=== PATIENT | female | born 1955 | race Caucasian/White ===

== ENCOUNTER 2022-07-03 15:13 | Inpatient (IN) | payer MEDICARE, OTHER ==
[~2022-07-03] VITALS: Ht 170.2 cm; Wt 93.0 kg
[2022-07-03] MEDS ORDERED: RISP0.2515 PO (15:41)
[2022-07-03] MEDS ORDERED: MELA3TAB41 PO (15:41)
[2022-07-03] MEDS ORDERED: MAG30ORA PO (15:41)
[2022-07-03] MEDS ORDERED: LEVO25TA7 PO (15:41)
[2022-07-03] MEDS ORDERED: MAGN400O6 PO (15:41)
[2022-07-03] MEDS ORDERED: PALI156D IM (15:41)
[2022-07-03] MEDS ORDERED: CLON0.1T PO (15:41)
[2022-07-03] MEDS ORDERED: PANT40TA2 PO (15:41)
[2022-07-03] MEDS ORDERED: LORA-259 PO (15:41)
[2022-07-03] MEDS ORDERED: DOCU-141 PO (15:41)
[2022-07-03] MEDS ORDERED: ACET-868 PO (15:41)
[2022-07-03] MEDS ORDERED: SIMV-46 PO (15:41)
--- NOTE | 2022-07-03 19:15 | NUR ---
darlyn MAYER [facility] for increase verbal agression since last night. sent by dr contreras for med/psych eval, geropsych admit. PLACED ON BED, TALKATIVE- IN AGRESSIVE MANNER, WILL CONTINUE TO MONITOR. BLOODS DRAWN EARLIER BY SUPERVISOR COLOR PASTE MIXING.
[2022-07-03 19:25] LABS: ACETAMINOPHEN 0 ug/ml (10-30); ALANINE AMINOTRANSFERASE 26 U/L (12-78); ALBUMIN 3.5 g/dL (3.4-5.0); ALCOHOL, BLOOD < 3 mg/dL (0-0); ALKALINE PHOSPHATASE 100 U/L (46-116); ASPARTATE AMINOTRANSFERASE 21 U/L (15-37); BILIRUBIN,DIRECT 0.1 mg/dL (0.0-0.2); BILIRUBIN,TOTAL 0.3 mg/dL (0.2-1.0); CALCIUM, SERUM 8.3 mg/dL (8.5-10.1); CARBON DIOXIDE 26 mmol/L (21-32); CHLORIDE 103 mmol/L (98-107); CREATININE 0.8 mg/dL (0.6-1.3); GLUCOSE 79 mg/dL (74-106); POTASSIUM 3.5 mmol/L (3.5-5.1); SODIUM SERUM 137 mmol/L (136-145); TOTAL PROTEIN, SERUM 7.3 g/dL (6.4-8.2); UREA NITROGEN, BLOOD 18 mg/dL (7-18)
[2022-07-03 20:18] LABS: BASOPHILS % (AUTO) 0.3 % (0.0-2.0); EOSINOPHILS % (AUTO) 0.9 % (0.0-6.0); HEMATOCRIT 42 % (33-45); HEMOGLOBIN 14.1 g/dL (11.5-14.8); LYMPHOCYTES # (AUTO) 1.5 K/uL (0.8-4.8); LYMPHOCYTES % (AUTO) 20.3 % (20.0-44.0); MEAN CORPUSCULAR HGB CONC 33 g/dl (31.0-36.0); MEAN CORPUSCULAR VOLUME 89 fL (82-100); MONOCYTES # (AUTO) 0.5 K/uL (0.1-1.30); MONOCYTES % (AUTO) 6.5 % (2.0-12.0); NEUTROPHILS # (AUTO) 5.5 K/uL (1.8-8.9); PLATELET COUNT (AUTO) 225 K/uL (150-450); RED BLOOD CELL COUNT(AUTO) 4.78 MIL/uL (4.0-5.2); WHITE BLOOD COUNT (AUTO) 7.6 K/uL (4.3-11.0)
[2022-07-03] MEDS ORDERED: LORAZEPAM 1 MG TABLET ONE (21:22)
[2022-07-03] MEDS ORDERED: LORAZEPAM 1 MG TABLET PO ONE (21:30)
[2022-07-03 21:31] LABS: BILIRUBIN,URINE NEGATIVE (NEGATIVE); COLOR,URINE YELLOW (YELLOW); LEUKOCYTE ESTERASE ,URINE NEGATIVE (NEGATIVE); NITRITE, URINE NEGATIVE (NEGATIVE); PROTEIN,URINE NEGATIVE (NEGATIVE); UGLUCOSE NEGATIVE (NEGATIVE); UROBILINOGEN,URINE 0.2 EU/dL (0.2)
[2022-07-03 21:45] LABS: BACTERIA,URINE 2+ /HPF (None Seen); RBC,URINE 0-2 /HPF (0-2); SQUAMOUS EPITHELIAL CELL,UR Moderate /HPF (None Seen); WBC,URINE 0-2 /HPF (0-3)
--- NOTE | 2022-07-03 22:23 | NUR ---
ROOM 218-1
--- NOTE | 2022-07-03 23:00 | NUR ---
REPORT GIVEN TO KELLEE RN ROOM 218-1 FOR RENATE.
--- NOTE | 2022-07-03 23:05 | NUR ---
Patient is admitted to room 218 bed A from ED she is alert and verbal appears very anxious and uncooperative. She was yelling and screaming refused body assessment, refused to get change to hospital gown. Patient was offered a sleeping pill to help her go to sleep she states that give me a gun I'll shoot myself and I mean it. Patient at some point calms down, staff assist with hospital gown and personal belongings, patient was assisted to bed safety maintained. Addendum: 07/04/22 at [address] [facility] INPATIENT RN3 RN Influenza and pneumonia vaccines offered to patient on admission but patient refused despite explanation of benefits and importance of vaccination.
--- NOTE | 2022-07-03 23:09 | NUR ---
PATIENT TRANSFERRED TO [facility]
--- NOTE | 2022-07-03 23:12 | NUR ---
Patient is admitted to room 218 bed A from ED she is alert and verbal appears very anxious and uncooperative. She was yelling and screaming refused body assessment, refused to get change to hospital gown. Patient was offered a sleeping pill to help her go to sleep she states that give me a gun I'll shoot myself and I mean it. Patient at some point calms down, staff assist with hospital gown and personal belongings, patient was assisted to bed safety maintained Influenza and pneumonia vaccines offered to patient on admission but patient refused despite explanation of benefits and importance of vaccination.
[2022-07-03] MEDS ORDERED: ACETAMINOPHEN 325 MG TABLET PO PRN (23:30)
[2022-07-03] MEDS ORDERED: MAGNESIUM HYDROXIDE 30 ML UDC PO PRN (23:30)
[2022-07-03] MEDS ORDERED: BLOOD SUGAR DIAGNOSTIC 1 EACH STRIP IN ONE (23:30)
[2022-07-03] MEDS ORDERED: MAG HYDROX/AL HYDROX/SIMETH 30 ML UDC PO PRN (23:30)
[2022-07-04] MEDS: CEPHALEXIN MONOHYDRATE 500 MG CAPSULE PO SCH ×3 (00:30→21:27)
[2022-07-04 01:58] VITALS: BP 158/97
[2022-07-04 02:01] VITALS: BP 158/97
--- NOTE | 2022-07-04 06:18 | NUR ---
Patient's sister Vidhi Denton was notified of patient's admission to [facility] unit.
[2022-07-04] MEDS: PANTOPRAZOLE 40 MG TABLET.DR PO SCH (07:32)
[2022-07-04] MEDS: LEVOTHYROXINE SODIUM 25 MCG TABLET PO SCH (07:32)
[2022-07-04 07:36] LABS: CHOLESTEROL 198 mg/dL (<200); HDL CHOLESTEROL 64 mg/dL (40-60); LDL 119 mg/dL (0-99); TRIGLYCERIDES 84 mg/dL (30-150)
[2022-07-04 07:42] LABS: ALBUMIN 3.4 g/dL (3.4-5.0); BILIRUBIN,TOTAL 0.6 mg/dL (0.2-1.0); CALCIUM, SERUM 8.4 mg/dL (8.5-10.1); CREATININE 0.8 mg/dL (0.6-1.3); POTASSIUM 3.8 mmol/L (3.5-5.1)
[2022-07-04 08:00] VITALS: BP 155/97
[2022-07-04] MEDS: DOCUSATE SODIUM 100 MG CAPSULE PO SCH (09:37)
--- NOTE | 2022-07-04 10:18 | NUR ---
ROME Clinical Note: Pt placed on a 5150 hold for danger to others and GD. Per hold, pt was brought to the hospital because she was aggressive at her facility. [place] [address]; ([phone]). ROME spoke with Parul soto ([phone]) who stated pt is welcomed back. ROME will contact pt's sister Vidhi ([phone]) to discuss treatment/discharge plan.
--- NOTE | 2022-07-04 10:18 | NUR ---
ROME Initial Discharge Plan: Patient currently resides at [facility] [address] [place] [address]; ([phone]). ROME spoke with Parul soto ([phone]) who stated pt is welcomed back. ROME will contact pt's sister Vidhi ([phone]) to discuss treatment/discharge plan. ROME will work with the MD, family, and pt to help coordinate appropriate discharge.
--- NOTE | 2022-07-04 10:19 | NUR ---
Treatment Plan: Pt refused to sign treatment plan and was labile. Pt laughing inappropriately.
--- NOTE | 2022-07-04 12:34 | NUR ---
Dr. Mitchell gave an order of Ativan 1 mg po q6hr prn for anxiety/agitation and to over ride the order.
[2022-07-04] MEDS: DIVALPROEX SODIUM 250 MG TABLET.DR PO SCH ×2 (12:53→17:43)
[2022-07-04] MEDS ORDERED: LORAZEPAM 1 MG TABLET PO PRN (13:00)
--- NOTE | 2022-07-04 13:11 | NUR ---
ROME Family: SW contacted pt's sister Vidhi ([phone]) and discussed treatment and discharge plan. Sister stated she would want pt to go back to [facility] when stable.
[2022-07-04 16:00] VITALS: BP 135/76
[2022-07-04] MEDS: risperiDONE 1 MG TABLET PO SCH (17:43)
--- NOTE | 2022-07-04 18:00 | NUR ---
RN NOTES PATIENT DELUSION TAKING SELF, ISOLATIVE, AGGRESSIVE, GUARDED. PATIENT AMBULATORY SELF CARE. DUE MEDICATION ADMINISTERED. REFUSED SI THOUGHTS.
[2022-07-04 20:00] VITALS: BP 157/82
--- NOTE | 2022-07-04 20:48 | NUR ---
SUPPORT CLERK. Received patient inside her room lying on her bed. Patient is confused, disorganized and talking to herself alone. Pateint denies Si/Hi. Encouraged patient to verbalized feelings and thoughts. Will Continue monitor for safety and behavior.
[2022-07-04] MEDS: SIMVASTATIN 20 MG TABLET PO SCH (21:27)
[2022-07-05] MEDS: PANTOPRAZOLE 40 MG TABLET.DR PO SCH ×2 (07:30→07:54)
[2022-07-05] MEDS: DOCUSATE SODIUM 100 MG CAPSULE PO SCH ×2 (07:54→09:00)
[2022-07-05] MEDS: LEVOTHYROXINE SODIUM 25 MCG TABLET PO SCH (07:54)
[2022-07-05] MEDS: risperiDONE 1 MG TABLET PO SCH ×3 (07:54→16:51)
[2022-07-05] MEDS: DIVALPROEX SODIUM 250 MG TABLET.DR PO SCH ×4 (07:54→16:51)
[2022-07-05] MEDS: CEPHALEXIN MONOHYDRATE 500 MG CAPSULE PO SCH ×2 (07:57→21:50)
[2022-07-05 08:00] VITALS: BP 145/88
[2022-07-05] MEDS ORDERED: OLANZAPINE 10 MG VIAL IM ONE (10:30)
--- NOTE | 2022-07-05 10:50 | NUR ---
GPS/RN PT WAS SELECTIVE WITH MEDS IN AM. DEFUSED DEPAKOTE AND RISPERDAL PO. DUE TO AGITATION AND BEING DISRUPTIVE IN THE UNIT DR MACKENZIE ORDERED ZYPREXA 10MG IM ONCE
--- NOTE | 2022-07-05 16:52 | NUR ---
GPS/RN PT REFUSED 1700 MEDS OFFERED X3
[2022-07-05 20:00] VITALS: BP 138/77
--- NOTE | 2022-07-05 20:20 | NUR ---
records management director notes: Received pt in her room, sleeping in bed. calm. on room air. breathing even and unlabored. no acute distress noted. will continue to monitor for safety and behavior.
[2022-07-05] MEDS: SIMVASTATIN 20 MG TABLET PO SCH (21:49)
[2022-07-06] MEDS: LEVOTHYROXINE SODIUM 25 MCG TABLET PO SCH (06:50)
[2022-07-06] MEDS: PANTOPRAZOLE 40 MG TABLET.DR PO SCH (06:50)
--- NOTE | 2022-07-06 06:54 | NUR ---
health sciences manager notes: Pt awake sitting in bed talking to herself. a/o X2. suspicious. guarded. angry. no acute distress noted. med compliant. verbalizes needs. ambulatory with a steady gait. needs anticipated and rendered. safety measures observed.
[2022-07-06 08:00] VITALS: BP 121/75
[2022-07-06] MEDS: CEPHALEXIN MONOHYDRATE 500 MG CAPSULE PO SCH ×2 (09:00→20:47)
[2022-07-06] MEDS: DOCUSATE SODIUM 100 MG CAPSULE PO SCH (09:00)
[2022-07-06] MEDS: DIVALPROEX SODIUM 250 MG TABLET.DR PO SCH ×3 (09:00→17:00)
[2022-07-06] MEDS: risperiDONE 1 MG TABLET PO SCH ×2 (09:00→17:00)
--- NOTE | 2022-07-06 10:56 | NUR ---
GPS/RN DR MACKENZIE ORDERED HALDOL 5MG IN AND BENADRYL 25MG IM ONCE FOR DISRUPTIVE BEHAVIOR IN THE UNIT, WHEN NURSES COME TO ADMINISTER THE SHOTS PT AGREED TO TAKE THEM.
[2022-07-06] MEDS ORDERED: diphenhydrAMINE HCL 50 MG/ML VIAL IM ONE (11:00)
[2022-07-06] MEDS ORDERED: HALOPERIDOL LACTATE INJ 5 MG/ML VIAL IM ONE (11:00)
[2022-07-06 16:00] VITALS: BP 137/76
--- NOTE | 2022-07-06 17:44 | NUR ---
GPS/RN PT REFUSED 1700 MEDS OFFERED X3. REMAINS ARGUMENTATIVE. STATES: " i DO NOT NEED THEM..."
[2022-07-06] MEDS: SIMVASTATIN 20 MG TABLET PO SCH (20:42)
[2022-07-06] MEDS: ZOLPIDEM TARTRATE 5 MG TABLET PO PRN (20:43)
[2022-07-06 20:44] VITALS: BP 148/93
--- NOTE | 2022-07-06 20:47 | NUR ---
RN notes Pt refuses keflex. explained risks and benefits. Pt stated " I don't take that meds!! Pt agitated easily.
--- NOTE | 2022-07-06 21:46 | NUR ---
RN notes Pt is requesting a sleeping pill ambien. Primary nurse open ambien in front of Pt and suddenly Pt refuses medication and screaming loudly. Medication was open [facility] and cosigned with QUINTON Euceda. Charge nurse is aware and informed. Returned medication with Pt's labeled inside a plastic bag.
[2022-07-07] MEDS: PANTOPRAZOLE 40 MG TABLET.DR PO SCH (07:30)
[2022-07-07] MEDS: LEVOTHYROXINE SODIUM 25 MCG TABLET PO SCH (07:30)
[2022-07-07 08:00] VITALS: BP 120/94
[2022-07-07] MEDS: risperiDONE 1 MG TABLET PO SCH ×2 (09:00→17:00)
[2022-07-07] MEDS: DIVALPROEX SODIUM 250 MG TABLET.DR PO SCH ×3 (09:00→17:00)
[2022-07-07] MEDS: CEPHALEXIN MONOHYDRATE 500 MG CAPSULE PO SCH ×2 (09:00→21:22)
[2022-07-07] MEDS: DOCUSATE SODIUM 100 MG CAPSULE PO SCH (09:00)
[2022-07-07 16:00] VITALS: BP 147/76
--- NOTE | 2022-07-07 18:29 | NUR ---
NURSE NOTE: PT REFUSED ALL PO MEDS DURING SHIFT. ENCOURAGED TO TAKE MULTIPLE TIMES, BUT PT STATED THAT THEY WERE BAD FOR HER, SHE DIDN'T NEED THEM, OR WOULD TELL YOU TO LEAVE THE ROOM.
--- NOTE | 2022-07-07 19:25 | NUR ---
GPS RN NOTE RECEIVED PT SLEEPING IN BED. PT A/O X2, ABLE TO MAKE NEEDS KNOWN. PT IS GUARDED, AND SUSPICIOUS. NO S/S OF RESPIRATORY DISTRESS NOTED. NO C/O PAIN OR DISCOMFORT AT THIS TIME. PT ABLE TO AMBULATE WITH STEADY GAIT. SAFETY MEASURES IMPLEMENTED. WILL CONTINUE TO MONITOR PT FOR SAFETY.
[2022-07-07 20:59] VITALS: BP 140/86
--- NOTE | 2022-07-07 21:00 | NUR ---
GPS RN NOTE PT HAS SCHEDULED MEDS FOR TONIGHT, KEFLEX 500 MG, AND ZOCOR 20 MG. PT REFUSES TO TAKE BOTH MEDS. SHE IS CLAIMING THAT WE ARE TRYING TO POISON HER THROUGH MEDS.
[2022-07-07] MEDS: SIMVASTATIN 20 MG TABLET PO SCH (21:21)
--- NOTE | 2022-07-08 06:44 | NUR ---
GPS RN NOTE PT LEFT IN STABLE CONDITION. ALL NEEDS ATTENDED. NO ACUTE DISTRESS, OR PAIN NOTED. PT REFUSES SKIN ASSESSMENT, AND PICTURES TO BE TAKEN. WILL ENDORSE PT TO AM SHIFT NURSE FOR CONTINUITY OF CARE.
[2022-07-08] MEDS: LEVOTHYROXINE SODIUM 25 MCG TABLET PO SCH (07:53)
[2022-07-08] MEDS: PANTOPRAZOLE 40 MG TABLET.DR PO SCH (07:53)
[2022-07-08 08:00] VITALS: BP 158/88
[2022-07-08] MEDS: DOCUSATE SODIUM 100 MG CAPSULE PO SCH (09:00)
[2022-07-08] MEDS: CEPHALEXIN MONOHYDRATE 500 MG CAPSULE PO SCH ×2 (09:00→21:00)
[2022-07-08] MEDS: DIVALPROEX SODIUM 250 MG TABLET.DR PO SCH ×3 (09:00→17:00)
[2022-07-08] MEDS: risperiDONE 1 MG TABLET PO SCH ×2 (09:00→17:00)
[2022-07-08 16:00] VITALS: BP 163/95
--- NOTE | 2022-07-08 18:07 | NUR ---
NURSE NOTE: PT REFUSED ALL PO MEDICATIONS EXCEPT FOR SYNTHROID AND PROTONIX DURING SHIFT. ATTEMPTED TO ENCOURAGE TO TAKE, BUT PT STATED THAT THE ALIENS FROM HER PLANET TELL HER SHE DOESN'T NEED IT.
[2022-07-08] MEDS: SIMVASTATIN 20 MG TABLET PO SCH (21:32)
[2022-07-08 21:58] VITALS: BP 148/78
[2022-07-09] MEDS: LEVOTHYROXINE SODIUM 25 MCG TABLET PO SCH (07:30)
[2022-07-09] MEDS: PANTOPRAZOLE 40 MG TABLET.DR PO SCH (07:30)
[2022-07-09 08:00] VITALS: BP 154/90
[2022-07-09] MEDS: risperiDONE 1 MG TABLET PO SCH ×2 (09:00→17:00)
[2022-07-09] MEDS: DOCUSATE SODIUM 100 MG CAPSULE PO SCH (09:00)
[2022-07-09] MEDS: CEPHALEXIN MONOHYDRATE 500 MG CAPSULE PO SCH ×2 (09:00→20:37)
[2022-07-09] MEDS: DIVALPROEX SODIUM 250 MG TABLET.DR PO SCH ×3 (09:00→17:00)
[2022-07-09 16:10] VITALS: BP_SYST 114; BP_SYST 116; BP_DIAS 56; BP_DIAS 80
[2022-07-09 19:32] VITALS: BP 143/81
[2022-07-09] MEDS: SIMVASTATIN 20 MG TABLET PO SCH (21:17)
[2022-07-10] MEDS: PANTOPRAZOLE 40 MG TABLET.DR PO SCH (07:06)
[2022-07-10] MEDS: LEVOTHYROXINE SODIUM 25 MCG TABLET PO SCH (07:06)
[2022-07-10 08:00] VITALS: BP 160/116
[2022-07-10] MEDS: CLONIDINE HCL 0.1 MG TABLET PO PRN ×2 (08:21→08:23)
--- NOTE | 2022-07-10 08:21 | NUR ---
RN-CO: PT REFUSED CLONIDINE, SHE THINKS THAT RN WANTS TO KILL HER.
[2022-07-10] MEDS: CEPHALEXIN MONOHYDRATE 500 MG CAPSULE PO SCH ×2 (08:23→21:00)
[2022-07-10] MEDS: DIVALPROEX SODIUM 250 MG TABLET.DR PO SCH ×3 (08:23→16:18)
[2022-07-10] MEDS: DOCUSATE SODIUM 100 MG CAPSULE PO SCH (08:23)
[2022-07-10] MEDS: risperiDONE 1 MG TABLET PO SCH ×2 (08:23→16:18)
--- NOTE | 2022-07-10 08:24 | NUR ---
RN-CO: PT REFUSED ALL HER AM MEDS INSPITE OF MY ENCOURAGEMENT, SHE BELIEVES THAT I WANT TO POISON HER.
--- NOTE | 2022-07-10 10:46 | NUR ---
RN-CO: PATIENT REFUSED ALL HER MEDICAITONS, SHE BELIEVES THAT STAFF IS POISONING HER. SHE IS RESTLESS AND PACING IN THE HALLWAY. SHE IS FOCUS ON DISCHARGE BEC. SHE DOES NOT BELIEVE THAT SHE BELONGS IN THE UNIT. SHE GOES TO NURSING STATION AND TALKS TO DR MACKENZIE AND TELLING HIM THAT MD TOOK HER IN GPS AGAINTS HER WILL AND THAT IS AGAINST GNOSTICIST.
--- NOTE | 2022-07-10 12:21 | NUR ---
RN-CO: PT REFUSED DEPAKOTE AT THIS TIME AND SHE STATED " NEVER GIVE ME ANY MEDICATIONS ! I AM NOT SICK!"
--- NOTE | 2022-07-10 16:01 | NUR ---
RN-CO: PATIENT WENT TO NURSING STATION AND WANTED TO BE DISCHARGE. SHE STATED " I NEED TO BE DISCHARGE NOW I DO NOT BELONG HERE AND I WON'T TAKE ANY MEDICATIONS!" PATIENT IS BELLIGERENT.
--- NOTE | 2022-07-10 19:30 | NUR ---
GPS RN NOTE, RECEIVED PATIENT AWAKE AND IN BED, NO S/S OR COMPLAINTS OF PAIN AT THIS TIME. PATIENT IS DISPLAYING NO S/S OF APPARENT DISTRESS AT THIS TIME. PATIENT BREATHING IS UNLABORED WITH EQUAL RISE AND FALL OF THE CHEST. PATIENT IS ALERT AND ORIENTED X 3 ON ROOM AIR WITH A SPO2 96%. PATIENT IS REFUSING MEDICATIONS, ANXIOUS, PARANOID, ARGUMENTATIVE, MAKES NEEDS KNOWN, AND COOPERATIVE. PATIENT IS A AWOL RISK. PATIENT DENIES SUICIDAL AND HOMICIDAL IDEATIONS AT THIS TIME. PATIENT ASSISTED WITH TURNING AND REPOSITIONING Q2HR AND PRN FOR COMFORT AND CIRCULATION. PATIENT HAS NO NEEDS AT THIS TIME. PATIENT EDUCATED ON THE USE OF THE CALL SELBY. PATIENT BED SIDE RAILS UP X 2 FOR SAFETY. PATIENT BED IS LOCKED AND LOW. WILL CONTINUE TO MONITOR THIS PATIENT Q15 MINUTES WITH THE HELP OF STAFF TO MAINTAIN SAFETY.
[2022-07-10 20:03] VITALS: BP 160/90
[2022-07-10] MEDS: SIMVASTATIN 20 MG TABLET PO SCH (21:45)
--- NOTE | 2022-07-10 21:45 | NUR ---
GPS RN NOTE, PATIENT REFUSED KEFLEX 500MG PO Q12HR AND ZOCOR 20MG PO HS. OFFERED THREE TIMES AND STILL PATIENT REFUSED STATING," NO MEDICATIONS JABARI WON'T ALLOW IT ". EDUCATED PATIENT ON THE RISKS AND BENEFITS OF TAKING AND REFUSING AFOREMENTIONED MEDICATION. WILL CONTINUE TO MONITOR THIS PATIENT WITH THE HELP OF STAFF.
[2022-07-11] MEDS: LEVOTHYROXINE SODIUM 25 MCG TABLET PO SCH (07:30)
[2022-07-11] MEDS: PANTOPRAZOLE 40 MG TABLET.DR PO SCH (07:30)
[2022-07-11 08:00] VITALS: BP 159/89
[2022-07-11] MEDS: DIVALPROEX SODIUM 250 MG TABLET.DR PO SCH ×3 (09:00→16:55)
[2022-07-11] MEDS: CEPHALEXIN MONOHYDRATE 500 MG CAPSULE PO SCH ×2 (09:00→21:00)
[2022-07-11] MEDS: risperiDONE 1 MG TABLET PO SCH ×3 (09:00→16:55)
[2022-07-11] MEDS: LISINOPRIL (5MG) 5 MG TABLET PO SCH (09:00)
[2022-07-11] MEDS: DOCUSATE SODIUM 100 MG CAPSULE PO SCH (09:00)
--- NOTE | 2022-07-11 09:13 | NUR ---
At first pt. agreed to take Protonix and Levothyroxine and once meds was offered she refused and said that is not Protonix and Levothyroxine. Pt. refused the rest of all the meds including psychotropic, was explained on the importance and offered 3x and still refusing and said I'm normal and not mentally ill.
--- NOTE | 2022-07-11 10:30 | NUR ---
RN Notes: Received awake in bed, guarded upon approached, suspicious and talking to self. Pt. ate 100% for breakfast and easily got irritated. At first pt. agreed to take Protonix and Levothyroxine and once meds was offered she refused and said that is not Protonix and Levothyroxine. Pt. refused the rest of all the meds including psychotropic, was explained on the importance and offered 3x and still refusing and said I'm normal and not mentally ill. Encouraged to verbalize feelings and motivated to attend group activity. Needs attended and will continue to monitor for safety.
--- NOTE | 2022-07-11 13:27 | NUR ---
Cecily refused for Depakote at this time and said "I'm normal and I don't need it". Will continue to monitorr.
[2022-07-11] MEDS ORDERED: OLANZAPINE 10 MG VIAL IM PRN (13:30)
[2022-07-11] MEDS: OLANZAPINE 10 MG VIAL IM PRN ×2 (13:44→16:56)
--- NOTE | 2022-07-11 19:30 | NUR ---
GPS RN NOTE, RECEIVED PATIENT AWAKE AND IN BED, NO S/S OR COMPLAINTS OF PAIN AT THIS TIME. PATIENT IS DISPLAYING NO S/S OF APPARENT DISTRESS AT THIS TIME. PATIENT BREATHING IS UNLABORED WITH EQUAL RISE AND FALL OF THE CHEST. PATIENT IS ALERT AND ORIENTED X 3 ON ROOM AIR WITH A SPO2 98%. PATIENT IS REFUSING MEDICATIONS, ANXIOUS, PARANOID, ARGUMENTATIVE, MAKES NEEDS KNOWN, AND COOPERATIVE. PATIENT IS A AWOL RISK. PATIENT DENIES SUICIDAL AND HOMICIDAL IDEATIONS AT THIS TIME. PATIENT ASSISTED WITH TURNING AND REPOSITIONING Q2HR AND PRN FOR COMFORT AND CIRCULATION. PATIENT HAS NO NEEDS AT THIS TIME. PATIENT EDUCATED ON THE USE OF THE CALL SELBY. PATIENT BED SIDE RAILS UP X 2 FOR SAFETY. PATIENT BED IS LOCKED AND LOW. WILL CONTINUE TO MONITOR THIS PATIENT Q15 MINUTES WITH THE HELP OF STAFF TO MAINTAIN SAFETY.
[2022-07-11 20:00] VITALS: BP 151/81
[2022-07-11] MEDS: SIMVASTATIN 20 MG TABLET PO SCH (21:26)
--- NOTE | 2022-07-11 21:26 | NUR ---
GPS RN NOTE, PATIENT REFUSED KEFLEX 500MG PO Q12HR AND ZOCOR 20MG PO HS. OFFERED THREE TIMES AND STILL PATIENT REFUSED STATING," NO MEDICATIONS EVER ". EDUCATED PATIENT ON THE RISKS AND BENEFITS OF TAKING AND REFUSING AFOREMENTIONED MEDICATION. WILL CONTINUE TO MONITOR THIS PATIENT WITH THE HELP OF STAFF.
[2022-07-12] MEDS: LEVOTHYROXINE SODIUM 25 MCG TABLET PO SCH (07:30)
[2022-07-12] MEDS: PANTOPRAZOLE 40 MG TABLET.DR PO SCH (07:30)
[2022-07-12] MEDS: OLANZAPINE 10 MG VIAL IM PRN ×2 (07:58→13:20)
[2022-07-12] MEDS: DOCUSATE SODIUM 100 MG CAPSULE PO SCH (08:03)
[2022-07-12] MEDS: CEPHALEXIN MONOHYDRATE 500 MG CAPSULE PO SCH ×2 (08:03→21:37)
[2022-07-12] MEDS: DIVALPROEX SODIUM 250 MG TABLET.DR PO SCH ×3 (08:03→16:57)
[2022-07-12] MEDS: LISINOPRIL (5MG) 5 MG TABLET PO SCH (08:03)
[2022-07-12] MEDS: risperiDONE 1 MG TABLET PO SCH ×3 (08:04→16:57)
--- NOTE | 2022-07-12 09:00 | NUR ---
GPS/RN PT REFUSED PO MEDS OFFERED X3. LOUD AND PROFANE. MEDICATED ORDERED WITH ZYPREXA 5MG IM
[2022-07-12 16:00] VITALS: BP 164/70
--- NOTE | 2022-07-12 19:30 | NUR ---
GPS RN NOTE, RECEIVED PATIENT AWAKE AND IN BED, NO S/S OR COMPLAINTS OF PAIN AT THIS TIME. PATIENT IS DISPLAYING NO S/S OF APPARENT DISTRESS AT THIS TIME. PATIENT BREATHING IS UNLABORED WITH EQUAL RISE AND FALL OF THE CHEST. PATIENT IS ALERT AND ORIENTED X 3 ON ROOM AIR WITH A SPO2 97%. PATIENT IS SELECTIVE WITH MEDICATIONS, ANXIOUS, PARANOID, ARGUMENTATIVE, MAKES NEEDS KNOWN, AND COOPERATIVE. PATIENT IS A AWOL RISK. PATIENT DENIES SUICIDAL AND HOMICIDAL IDEATIONS AT THIS TIME. PATIENT ASSISTED WITH TURNING AND REPOSITIONING Q2HR AND PRN FOR COMFORT AND CIRCULATION. PATIENT HAS NO NEEDS AT THIS TIME. PATIENT EDUCATED ON THE USE OF THE CALL SELBY. PATIENT BED SIDE RAILS UP X 2 FOR SAFETY. PATIENT BED IS LOCKED AND LOW. WILL CONTINUE TO MONITOR THIS PATIENT Q15 MINUTES WITH THE HELP OF STAFF TO MAINTAIN SAFETY.
[2022-07-12 20:00] VITALS: BP 150/110
[2022-07-12] MEDS: SIMVASTATIN 20 MG TABLET PO SCH (21:37)
[2022-07-12] MEDS: ZOLPIDEM TARTRATE 5 MG TABLET PO PRN (22:17)
--- NOTE | 2022-07-12 22:17 | NUR ---
GPS RN NOTE, PATIENT REFUSED AMBIEN 5MG PO HS. OFFERED THREE TIMES AND STILL PATIENT REFUSED STATING," NO THAT MEDICATION MAKES ME VERY CONFUSED AND NUTS ". EDUCATED PATIENT ON THE RISKS AND BENEFITS OF TAKING AND REFUSING AFOREMENTIONED MEDICATION. WILL CONTINUE TO MONITOR THIS PATIENT WITH THE HELP OF STAFF.
[2022-07-13] MEDS: LEVOTHYROXINE SODIUM 25 MCG TABLET PO SCH (07:30)
[2022-07-13] MEDS: PANTOPRAZOLE 40 MG TABLET.DR PO SCH (07:30)
[2022-07-13] MEDS: LISINOPRIL (5MG) 5 MG TABLET PO SCH (08:25)
[2022-07-13] MEDS: DOCUSATE SODIUM 100 MG CAPSULE PO SCH (08:33)
[2022-07-13] MEDS: CEPHALEXIN MONOHYDRATE 500 MG CAPSULE PO SCH ×2 (08:33→20:50)
[2022-07-13] MEDS: risperiDONE 1 MG TABLET PO SCH ×3 (08:33→17:00)
[2022-07-13] MEDS: DIVALPROEX SODIUM 250 MG TABLET.DR PO SCH ×3 (08:33→17:00)
[2022-07-13] MEDS: OLANZAPINE 10 MG VIAL IM PRN ×3 (08:35→17:34)
--- NOTE | 2022-07-13 08:37 | NUR ---
GPS/RN PT REFUSED VS CHECK IN AM REFUSED ALL AM MEDS OFFERED X3. BELLIGERENT AND USING FOUL LANGUAGE. ZYPREXA 5MG IM GIVEN ORDERED.
[2022-07-13] MEDS: SIMVASTATIN 20 MG TABLET PO SCH (21:07)
--- NOTE | 2022-07-13 21:08 | NUR ---
RN note:patient refused V/S to be taken,and also her scheduled medications Kelfex 500mg PO and Simvastatin 20 mg PO.Patient remains to be delusional that she is the tail edger of the hospital,mumbling,talking to self,non sensible.No s/s of acute distress noted.Will continue to monitor q15 min rounds for safety.
[2022-07-14] MEDS: PANTOPRAZOLE 40 MG TABLET.DR PO SCH (07:30)
[2022-07-14] MEDS: LEVOTHYROXINE SODIUM 25 MCG TABLET PO SCH (07:30)
[2022-07-14] MEDS: DOCUSATE SODIUM 100 MG CAPSULE PO SCH (08:52)
[2022-07-14] MEDS: CEPHALEXIN MONOHYDRATE 500 MG CAPSULE PO SCH ×2 (08:53→21:00)
[2022-07-14] MEDS: LISINOPRIL (5MG) 5 MG TABLET PO SCH (08:53)
[2022-07-14] MEDS: risperiDONE 1 MG TABLET PO SCH ×3 (08:53→16:40)
[2022-07-14] MEDS: OLANZAPINE 10 MG VIAL IM PRN ×2 (08:53→13:39)
[2022-07-14] MEDS: DIVALPROEX SODIUM 250 MG TABLET.DR PO SCH ×3 (08:53→16:39)
--- NOTE | 2022-07-14 08:53 | NUR ---
RN NOTE PATIENT REFUSED VITAL SIGN CHECK, REFUSED ALL MORNING MEDICATIONS. OFFERED X3, STRONGLY REFUSED, PATIENT STATED "I'M NOT PSYCHOTIC". ZYPREXA 5 MG IM GIVEN ORDERED.
--- NOTE | 2022-07-14 11:15 | NUR ---
GPS/RN ASSUMED CARE OF PATIENT
--- NOTE | 2022-07-14 19:30 | NUR ---
GPS RN OPENING NOTE RECEIVED PATIENT AWAKE IN BED. A/OX2. PT STABLE ON ROOM AIR.NO SOB OR S/S OF RESPIRATORY DISTRESS. BREATHING EVEN AND UNLABORED. PT IS PARANOID, EASILY IRRITATED, AND DISORGANIZED. SAFETY PRECAUTIONS IN PLACE. WILL CONTINUE TO MONITOR Q15MIN ROUNDS FOR SAFETY AND BEHAVIOR.
[2022-07-14] MEDS: SIMVASTATIN 20 MG TABLET PO SCH (21:31)
--- NOTE | 2022-07-14 21:54 | NUR ---
RN NOTE PT REFUSING TO TAKE KEFLEX AND SIMVASTATIN. OFFERED X3 BUT PT STRONGLY REFUSING. ATTEMPTED TO EDUCATE PT ON MEDICATION COMPLIANCE AND BUT STARTED YELLING "GET OUT OF MY ROOM. I WILL NOT TAKE ANYTHING". CHARGE NURSE EDUARD MAGUIRE.
[2022-07-15] MEDS: LEVOTHYROXINE SODIUM 25 MCG TABLET PO SCH (07:59)
[2022-07-15] MEDS: PANTOPRAZOLE 40 MG TABLET.DR PO SCH (07:59)
[2022-07-15] MEDS: DIVALPROEX SODIUM 250 MG TABLET.DR PO SCH ×3 (08:56→16:18)
[2022-07-15] MEDS: DOCUSATE SODIUM 100 MG CAPSULE PO SCH (08:56)
[2022-07-15] MEDS: OLANZAPINE 10 MG VIAL IM PRN (08:56)
[2022-07-15] MEDS: LISINOPRIL (5MG) 5 MG TABLET PO SCH (08:57)
[2022-07-15] MEDS: risperiDONE 1 MG TABLET PO SCH ×3 (08:57→16:18)
[2022-07-15] MEDS: CEPHALEXIN MONOHYDRATE 500 MG CAPSULE PO SCH ×2 (08:57→20:56)
[2022-07-15] MEDS: HALOPERIDOL LACTATE INJ 5 MG/ML VIAL IM PRN ×2 (12:37→16:18)
[2022-07-15 20:41] VITALS: BP 138/76
[2022-07-15] MEDS: ZOLPIDEM TARTRATE 5 MG TABLET PO PRN (21:02)
[2022-07-15] MEDS: SIMVASTATIN 20 MG TABLET PO SCH (21:07)
[2022-07-16] MEDS: LEVOTHYROXINE SODIUM 25 MCG TABLET PO SCH ×2 (06:54→09:12)
[2022-07-16] MEDS: PANTOPRAZOLE 40 MG TABLET.DR PO SCH (06:54)
--- NOTE | 2022-07-16 06:55 | NUR ---
RN Note: 2100: Patient c/o difficulty falling asleep,requested and given Ambien 5 mg PO as ordered.With good effect." I slept good".
[2022-07-16 08:00] VITALS: BP 160/92
[2022-07-16] MEDS: DOCUSATE SODIUM 100 MG CAPSULE PO SCH (09:00)
[2022-07-16] MEDS: LISINOPRIL (5MG) 5 MG TABLET PO SCH (09:00)
[2022-07-16] MEDS: CEPHALEXIN MONOHYDRATE 500 MG CAPSULE PO SCH ×2 (09:00→21:00)
[2022-07-16] MEDS: DIVALPROEX SODIUM 250 MG TABLET.DR PO SCH ×3 (09:00→16:59)
[2022-07-16] MEDS: risperiDONE 1 MG TABLET PO SCH ×3 (09:00→17:03)
[2022-07-16] MEDS: diphenhydrAMINE HCL 50 MG/ML VIAL IM PRN ×2 (09:17→13:01)
[2022-07-16] MEDS: HALOPERIDOL LACTATE INJ 5 MG/ML VIAL IM PRN ×2 (09:17→13:01)
--- NOTE | 2022-07-16 09:35 | NUR ---
RN-CO: PATIENT WAS SEEN AND EXAMINED BY DR MACKENZIE. SHE REMAINS DELUSIONAL AND UNCOOPERATIVE. REFUSED ALL HER MEDICATIONS AND THREW WATER TO STAFF. SHE WAS GIVEN IM HALDOL AND BENADRYL BACK UP FOR REFUSAL OF PO MEDICATIONS. SHE DOES NOT BELIEVE THAT SHE IS PSYCHOTIC.
--- NOTE | 2022-07-16 13:09 | NUR ---
RN-CO: PATIENT REMAINS DELUSIONAL, SHE BELIEVES THAT SHE IS THE "ORIGINAL CINDERELLA." SHE REFUSED HER 1PM MEDICATIONS AGAIN. SHE IS TALKING TO HERSELF AND SHE ALSO STATED THAT HER BOYFRIEND IS A PSYCHIATRIST. WHILE IN AM SHE TOLD DR MACKENZIE THAT SHE NEEDS A BOYFRIEND.
[2022-07-16 16:00] VITALS: BP 142/68
[2022-07-16 20:32] VITALS: BP 132/92
[2022-07-16] MEDS: SIMVASTATIN 20 MG TABLET PO SCH (21:02)
[2022-07-17] MEDS: LEVOTHYROXINE SODIUM 25 MCG TABLET PO SCH (06:49)
[2022-07-17] MEDS: PANTOPRAZOLE 40 MG TABLET.DR PO SCH (06:49)
[2022-07-17 08:00] VITALS: BP 159/86
[2022-07-17] MEDS: CEPHALEXIN MONOHYDRATE 500 MG CAPSULE PO SCH ×3 (09:00→21:00)
[2022-07-17] MEDS: DOCUSATE SODIUM 100 MG CAPSULE PO SCH (09:06)
[2022-07-17] MEDS: risperiDONE 1 MG TABLET PO SCH ×3 (09:06→16:32)
[2022-07-17] MEDS: LISINOPRIL (5MG) 5 MG TABLET PO SCH (09:06)
[2022-07-17] MEDS: DIVALPROEX SODIUM 250 MG TABLET.DR PO SCH ×3 (09:06→16:33)
[2022-07-17] MEDS ORDERED: PALIPERIDONE PALMITATE 156 MG/ML SYRINGE IM SCH (11:00)
[2022-07-17] MEDS: diphenhydrAMINE HCL 50 MG/ML VIAL IM PRN (13:47)
[2022-07-17] MEDS: HALOPERIDOL LACTATE INJ 5 MG/ML VIAL IM PRN (13:47)
--- NOTE | 2022-07-17 13:50 | NUR ---
NURSE NOTE: PT REFUSE PO MEDS (DEPAKOTE AND RISPERDAL). ZYPREXA AND BENADRYL ADMIN IM ORDERED PER REISE. PT FERNANDO WELL. WILL CONT TO MONITOR.
--- NOTE | 2022-07-17 15:00 | NUR ---
NURSE NOTE: SELWYN FAUSTIN IM ADMINISTERED ORDERED. PT FERNANDO WELL. WILL CONT TO MONITOR.
[2022-07-17 16:00] VITALS: BP 147/78
--- NOTE | 2022-07-17 19:00 | NUR ---
NURSE NOTE: PT TOOK 0900 AND 1700 PO MEDS. REFUSED 1300 PO MEDS (ENCOURAGED TO TAKE MULT TIMES) SO GOT ZYPREXA AND BENADRYL IM PER REISE. PT IN STABLE COND AT THIS TIME. ALSO RECEIVED INVEGA SUSTENNA IM ORDERED AT 1500. WILL CONT TO MONITOR.
[2022-07-17] MEDS: ZOLPIDEM TARTRATE 5 MG TABLET PO PRN (21:02)
[2022-07-17] MEDS: SIMVASTATIN 20 MG TABLET PO SCH (21:02)
--- NOTE | 2022-07-17 21:03 | NUR ---
Pt c/o insomnia. Least restrictive measures ineffective. Ambien 5 mg 1 tab po prn given as ordered. Will continue to monitor.
--- NOTE | 2022-07-17 22:02 | NUR ---
Pt refused 2100 medication Keflex 500 mg. Explained risk and benefits. Offered x3 and still refused. Pt states, " I dont take keflex because i am allergic to it." Charge nurse aware. Will continue to monitor. Will endorse to next shift.
--- NOTE | 2022-07-17 22:07 | NUR ---
Post 1 hr Ambien effective. Pt asleep in bed easy to arouse. Frequent visual check done for safety. Will continue to monitor.
--- NOTE | 2022-07-18 03:10 | NUR ---
Pt awake and c/o anxiety. Least restrictive measures ineffective. Ativan 1 mg po prn given as ordered. Will continue to monitor.
[2022-07-18] MEDS: LEVOTHYROXINE SODIUM 25 MCG TABLET PO SCH (06:43)
[2022-07-18] MEDS: PANTOPRAZOLE 40 MG TABLET.DR PO SCH (06:43)
[2022-07-18 08:00] VITALS: BP 109/55
[2022-07-18] MEDS: risperiDONE 1 MG TABLET PO SCH ×3 (09:00→17:25)
[2022-07-18] MEDS: CEPHALEXIN MONOHYDRATE 500 MG CAPSULE PO SCH ×2 (09:00→21:00)
[2022-07-18] MEDS: LISINOPRIL (5MG) 5 MG TABLET PO SCH (09:00)
[2022-07-18] MEDS: DOCUSATE SODIUM 100 MG CAPSULE PO SCH (09:00)
[2022-07-18] MEDS: DIVALPROEX SODIUM 250 MG TABLET.DR PO SCH ×3 (09:00→17:25)
[2022-07-18] MEDS: HALOPERIDOL LACTATE INJ 5 MG/ML VIAL IM PRN ×2 (09:14→13:52)
[2022-07-18] MEDS: diphenhydrAMINE HCL 50 MG/ML VIAL IM PRN ×2 (09:14→13:52)
--- NOTE | 2022-07-18 09:23 | NUR ---
RN-NOTES PATIENT REFUSED ALL 0900AM MEDICATIONS INCLUDING DEPAKOTE 250MG P.O AND RISPERDAL 2MG P.O. OFFERED X3 BUT PATIENT GETS ANGRY AND IRRITABLE. STATED" I'M NOT TAKING THAT MEDICATIONS BECAUSE IT IS WRONG MEDICATIONS". HALDOL 5MG IM AND BENADRYL 25MG IM GIVEN ORDERED. PATIENT IS REISE.
--- NOTE | 2022-07-18 13:54 | NUR ---
RN-NOTES PATIENT REFUSED ALL 1300 P.O MEDICATIONS INCLUDING DEPAKOTE 250MG P.O AND RISPERDAL 2MG P.O. OFFERED X3. HALDOL 5MG IM AND BENADRYL 25MG IM GIVEN ORDERED. PATIENT IS REISE.
--- NOTE | 2022-07-18 17:58 | NUR ---
RN-NOTES PATIENT IS VISIBLE IN THE UNIT,A/OX 2,GUARDED,NOTED WITH ARGUMENTATIVE,ANGRY AND IRRITABLE WHEN APPROACH. IM MEDICATIONS GIVEN IN AM, AND AFTERNOON. STATED " SHE'S GOING TO [facility] ALL NURSES IN THIS HOSPITAL FOR GIVING HER THE INJECTIONS". PIT RECORDER EXPLAINED THAT SHE WAS REISED AND IN EVERY REFUSAL OF A SPECIFIC MEDICATIONS WILL GIVE INJECTIONS. PATIENT TOOK THE 1700 P.O MEDICATIONS THIS SHIFT. PATIENT IS AMBULATORY WITH STEADY GAIT. ALL NEEDS ATTENDED AND ANTICIPATED. WILL CONT. MONITORING FOR SAFETY AND BEHAVIOR. WILL ENDORSE TO INCOMING NURSE FOR CONTINUITY OF CARE.
[2022-07-18 20:15] VITALS: BP 137/69
--- NOTE | 2022-07-18 20:26 | NUR ---
RN NOTES: RECEIVED PATIENT RESTING IN HER ROOM EASILY AGITATED , PARANOID,HYPERVERBAL GUARDED,NO ACUTE DISTRESS NOTED.NEEDY DEMENDING ARGUMENTATIVE BEHAVIOR. ALL NEEDS ATTENDED AND ANTICIPATED. WILL CONTINUE TO MONITORING FOR SAFETY AND BEHAVIOR.
[2022-07-18] MEDS: SIMVASTATIN 20 MG TABLET PO SCH (21:13)
--- NOTE | 2022-07-18 21:14 | NUR ---
RN NOTES: Pt refused night schedule at 2100 medication Keflex 500 mg, Zocor 20 mg po Explained risk and benefits. Offered x3 and still refused. Pt states, " I dont take any medications i am allergic to it." Charge nurse aware. Will continue to monitor.
--- NOTE | 2022-07-19 08:10 | NUR ---
Discharge Note: Patient will be discharged to nursing home facility to [facility] [address] [place] [id number]; ([phone]) via Ambulance transportation at 2PM. Tube Balancer spoke with Parul admissions dean at [facility] ([phone]) who stated patient will be accepted at facility today. Patient is alert and oriented x2 and is not able to plan for self-care at this time but is willing to accept care provided by the facility. Patient denies any suicidal or homicidal ideations. Patient is aware and agreeable with discharge plans. Patients sister Vidhi ([phone]). Patient will continue to follow-up with (psychiatrist) Dr. Martinez at [address] [place] [address]; ([phone]) and (signals intelligence superintendent) Dr. Perez [address] [facility] [address], [place] [address]; ([phone]). Patient presents with euthymic mood and congruent affect.
[2022-07-19] MEDS: LISINOPRIL (5MG) 5 MG TABLET PO SCH (08:19)
[2022-07-19] MEDS: DIVALPROEX SODIUM 250 MG TABLET.DR PO SCH ×2 (08:26→12:54)
[2022-07-19] MEDS: LEVOTHYROXINE SODIUM 25 MCG TABLET PO SCH (08:26)
[2022-07-19] MEDS: PANTOPRAZOLE 40 MG TABLET.DR PO SCH (08:27)
[2022-07-19] MEDS: risperiDONE 1 MG TABLET PO SCH ×2 (08:27→12:54)
[2022-07-19] MEDS: DOCUSATE SODIUM 100 MG CAPSULE PO SCH (08:31)
[2022-07-19] MEDS: CEPHALEXIN MONOHYDRATE 500 MG CAPSULE PO SCH (08:34)
--- NOTE | 2022-07-19 09:31 | NUR ---
Dr. Mitchell gave an order to D/C hold and D/C to [facility] and to follow with the psych and medical doctors. Dr. Mitchell ordered on meds to continue in the facility.
--- NOTE | 2022-07-19 15:00 | NUR ---
GPS/RN PT DISCHARGED BACK TO [facility]. REPORT GIVEN TO THE [facility] NURSE NARCISO . PROPERTY RETURNED. EXIT CARE INSTRUCTIONS AND PRESCRIPTIONS PROVIDED. PT REFUSED TO SIGN THE D/C FORMS. NO SI OR HI AT THE TIME OF D/C REPORTED. AMBULATORY.VSS. PT LEFT UNIT AMBULANCE
== END 2022-07-19 15:10 | DRG 885 ==
LOC: ER 15:28 → GPS 22:36
PROVIDERS: ADMIT Psychiatry & Neurology Psychiatry
DX: F31.2 Bipolar disorder, current episode manic severe with psychotic features (principal); F29 Unspecified psychosis not due to a substance or known physiological condition; F41.9 Anxiety disorder, unspecified; I10 Essential (primary) hypertension; F03.90 Unspecified dementia, unspecified severity, without behavioral disturbance, psychotic disturbance, mood disturbance, and anxiety; M19.90 Unspecified osteoarthritis, unspecified site; E03.9 Hypothyroidism, unspecified; Z88.8 Allergy status to other drugs, medicaments and biological substances; Z88.1 Allergy status to other antibiotic agents; Z91.011 Allergy to milk products; Z79.899 Other long term (current) drug therapy; E66.9 Obesity, unspecified; Z68.32 Body mass index [BMI] 32.0-32.9, adult; Z91.14 Patient's other noncompliance with medication regimen
CPT/HCPCS: 36415; 80048-TC; 80053-TC; 80061-TC; 80076-TC; 81001; 82962-TC; 84443-TC; 85025-TC; 87081-TC; 87086-TC; C9803; G0480; J1200; J1630; J2426; J3490

== ENCOUNTER 2022-11-07 00:10 | Inpatient (IN) | payer MEDICARE, OTHER ==
[~2022-11-07] VITALS: Ht 165.1 cm; Wt 93.0 kg
[~2022-11-07 00:10] MED LIST: ACET-868 PO; CLON0.1T PO; DOCU-141 PO; LEVO25TA7 PO; LORA-259 PO; MAG30ORA PO; MAGN400O6 PO; MELA3TAB41 PO; PALI156D IM; PANT40TA2 PO; RISP0.2515 PO; SIMV-46 PO
--- NOTE | 2022-11-07 00:30 | NUR ---
COVID ANTIGEN SWAB COLLECTED AND SENT TO LAB
--- NOTE | 2022-11-07 00:35 | NUR ---
NONPROFIT FINANCIAL CONTROLLER AT PT'S BEDSIDE
[2022-11-07] MEDS ORDERED: LORAZEPAM INJ 2 MG/ML VIAL ONE (00:45)
[2022-11-07] MEDS ORDERED: DIVA-78 PO (00:47)
[2022-11-07] MEDS ORDERED: LISI-768 PO (00:47)
[2022-11-07 00:51] LABS: BASOPHILS # (AUTO) 0.1 K/uL (0.0-0.2); BASOPHILS % (AUTO) 0.8 % (0.0-2.0); EOSINOPHILS % (AUTO) 1.7 % (0.0-6.0); HEMATOCRIT 38 % (33-45); HEMOGLOBIN 12.6 g/dL (11.5-14.8); LYMPHOCYTES # (AUTO) 1.3 K/uL (0.8-4.8); LYMPHOCYTES % (AUTO) 21.7 % (20.0-44.0); MEAN CORPUSCULAR HGB CONC 33 g/dl (31.0-36.0); MEAN CORPUSCULAR VOLUME 88 fL (82-100); MONOCYTES # (AUTO) 0.4 K/uL (0.1-1.30); MONOCYTES % (AUTO) 6.6 % (2.0-12.0); NEUTROPHILS # (AUTO) 4.2 K/uL (1.8-8.9); NEUTROPHILS % (AUTO) 69.2 % (43.0-81.0); PLATELET COUNT (AUTO) 246 K/uL (150-450); RED BLOOD CELL COUNT(AUTO) 4.34 MIL/uL (4.0-5.2); WHITE BLOOD COUNT (AUTO) 6.1 K/uL (4.3-11.0)
[2022-11-07] MEDS ORDERED: LORAZEPAM INJ 2 MG/ML VIAL IM ONE (01:00)
[2022-11-07 01:01] LABS: CALCIUM, SERUM 8.7 mg/dL (8.5-10.1); CARBON DIOXIDE 28 mmol/L (21-32); CHLORIDE 106 mmol/L (98-107); CREATININE 0.8 mg/dL (0.6-1.3); GLUCOSE 100 mg/dL (74-106); POTASSIUM 3.5 mmol/L (3.5-5.1); SODIUM SERUM 141 mmol/L (136-145); UREA NITROGEN, BLOOD 10 mg/dL (7-18)
[2022-11-07 01:11] LABS: ALANINE AMINOTRANSFERASE 22 U/L (12-78); ALBUMIN 3.3 g/dL (3.4-5.0); ALCOHOL, BLOOD < 3 mg/dL (0-0); ALKALINE PHOSPHATASE 95 U/L (46-116); ASPARTATE AMINOTRANSFERASE 14 U/L (15-37); BILIRUBIN,DIRECT 0.1 mg/dL (0.0-0.2); BILIRUBIN,TOTAL 0.4 mg/dL (0.2-1.0); TOTAL PROTEIN, SERUM 6.6 g/dL (6.4-8.2)
--- NOTE | 2022-11-07 01:27 | NUR ---
URINE COLLECTED AND SENT TO LAB
[2022-11-07 01:55] LABS: BILIRUBIN,URINE NEGATIVE (NEGATIVE); COLOR,URINE YELLOW (YELLOW); LEUKOCYTE ESTERASE ,URINE 2+ (NEGATIVE); NITRITE, URINE NEGATIVE (NEGATIVE); PH,URINE 6.5 (5.0-8.0); PROTEIN,URINE NEGATIVE (NEGATIVE); UGLUCOSE NEGATIVE (NEGATIVE); UROBILINOGEN,URINE 0.2 EU/dL (0.2)
[2022-11-07 01:59] LABS: BACTERIA,URINE Rare /HPF (None Seen); RBC,URINE 0-2 /HPF (0-2); SQUAMOUS EPITHELIAL CELL,UR Few /HPF (None Seen)
--- NOTE | 2022-11-07 02:24 | NUR ---
REPORT GIVEN TO RUBI OLIVARES RN FOR RENATE
--- NOTE | 2022-11-07 03:09 | NUR ---
PT TRANSFERRING TO [facility] VIA HOSPITAL PROTOCOL. ALL BELONGINGS WITH PT.
--- NOTE | 2022-11-07 03:10 | NUR ---
ANIMAL RIDES MANAGER NOTES ADMITTED A 67-Y/O, FEMALE, PT CAME FROM [facility]. ADMITTED ON A 5150 HOLD FOR GD. PER HOLD, PT. ADMITTED DUE TO REFUSING MEDS AND AGGRESSIVE TO THE FACILITY STAFF. UPON FACE TO FACE EVALUATION, PATIENT IS AGITATED AND CONFUSED. VERBALIZATION OF FEELINGS ENCOURAGED. SKIN ASSESSMENT DONE. ALL BELONGINGS WERE CHECKED FOR CONTRABAND. PATIENT'S RIGHTS WERE DISCUSSED AND BOOKLET WAS GIVEN. CONTACTED DR. MACKENZIE AND HOSPITALIST TRAVEL WRITER [facility] AND INFORMED THEM OF THE ADMISSION. PATIENT REFUSED TO SIGN ADMITTING PAPERWORK. OFFERED PNEUMONIA AND FLU VACCINE BUT PATIENT REFUSED. WILL CONTINUE TO MONITOR THE PATIENT Q15 MINUTES FOR SAFETY.
[2022-11-07] MEDS ORDERED: MAG HYDROX/AL HYDROX/SIMETH 30 ML UDC PO PRN (03:30)
[2022-11-07] MEDS ORDERED: MAGNESIUM HYDROXIDE 30 ML UDC PO PRN (03:30)
[2022-11-07] MEDS ORDERED: LORAZEPAM 0.5 MG TABLET PO PRN (03:30)
[2022-11-07] MEDS ORDERED: ACETAMINOPHEN 325 MG TABLET PO PRN (03:30)
[2022-11-07] MEDS ORDERED: BLOOD SUGAR DIAGNOSTIC 1 EACH STRIP IN ONE (03:30)
[2022-11-07 04:30] VITALS: BP 132/71
[2022-11-07 08:00] VITALS: BP 141/81
[2022-11-07] MEDS: PANTOPRAZOLE 40 MG TABLET.DR PO SCH (08:09)
[2022-11-07] MEDS: LEVOTHYROXINE SODIUM 25 MCG TABLET PO SCH (08:09)
[2022-11-07] MEDS: DOCUSATE SODIUM 100 MG CAPSULE PO SCH (08:49)
[2022-11-07] MEDS: LISINOPRIL (5MG) 5 MG TABLET PO SCH (08:50)
--- NOTE | 2022-11-07 09:15 | NUR ---
ROME Initial Discharge Note: Patient currently resides at [address] [address]; ([phone]). ROME spoke with Parul david from [facility] who stated that pt is welcomed back. ROME will contact pt's sister Vidhi ([phone]) to notify of admission and discuss treatment/discharge plan. ROME will work with the MD, family, and pt to help coordinate appropriate discharge.
--- NOTE | 2022-11-07 09:16 | NUR ---
ROME Clinical Note: Pt placed on a 5150 hold for GD. Per hold, pt was refusing her medications at [facility] and was agitated/aggressive towards the staff. [place] [address]; ([phone]). ROME spoke with Parul david from [facility] who stated that pt is welcomed back. ROME will contact pt's sister Vidhi ([phone]) to notify of admission and discuss treatment/discharge plan.
--- NOTE | 2022-11-07 09:17 | NUR ---
Treatment Plan: Pt refused to sign treatment plan and was psychotic.
[2022-11-07] MEDS: DIVALPROEX SODIUM 250 MG TABLET.DR PO SCH ×2 (12:50→17:00)
[2022-11-07] MEDS: risperiDONE 1 MG TABLET PO SCH ×2 (12:51→17:00)
--- NOTE | 2022-11-07 12:51 | NUR ---
RN-NOTES PATIENT REFUSED DEPAKOTE 250MG P.O AND RISPERDAL 2MG P.O. EXPLAINED RISK AND BENEFITS BUT PATIENT GETS ANGRY AND IRRITABLE. STATED" I'M NOT TAKING ANY OF THOSE MEDICATIONS ,I'M NOT MEDICAL". OFFERED X3
--- NOTE | 2022-11-07 14:31 | NUR ---
ROME Family Contact: SW CONTACTED PT'S SISTER JONATHAN ([phone]) AND NOTIFIED OF ADMISSION AND DISCUSSED TREATMENT/DISCHARGE.
--- NOTE | 2022-11-07 17:06 | NUR ---
RN-NOTES PATIENT STILL REFUSED DEPAKOTE 250MG P.O AND RISPERDAL 2MG P.O. EXPLAINED RISK AND BENEFITS BUT PATIENT GETS ARGUMENTATIVE ,ANGRY AND IRRITABLE. OFFERED X3
--- NOTE | 2022-11-07 18:05 | NUR ---
RN-NOTES PATIENT STAYS IN BED MOST OF THE TIME ,INTERMITTENTLY SLEEPING WITH BREATHING EVEN AND NONLABORED EASILY AROUSED. REFUSED ALL 1300 AND 1700 MEDICATIONS DESPITE ENCOURAGEMENT.. NOTED PATIENT WITH GUARDED EASILY ANGRY,ARGUMENTATIVE BEHAVIOR.PATIENT AMBULATORY TO THE BATHROOM WITH STEADY GAIT. ALL NEEDS ATTENDED AND ANTICIPATED. WILL CONT. MONITORING FOR SAFETY AND BEHAVIOR. Addendum: 11/07/22 at 1808 by REBA DE LA FUENTE RN WILL ENDORSE TO INCOMING N/SHIFT.
--- NOTE | 2022-11-07 18:39 | NUR ---
RN-NOTES ANGIE DO NOTIFIED REGARDING PATIENT'S URINALYSIS RESULTS.
--- NOTE | 2022-11-07 19:43 | NUR ---
RN NOTES :RECEIVED PATIENT RESTING IN ROOM, A/OX2. NO S/SX OF ACUTE DISTRESS NOTED. PATIENT IS ,CONFUSED, DELUSIONAL ANXIOUS, EASILY AGITATED , UNCOOPERTIVE, PARANOID , GUARDED, LOUD TALKING TO SELF, NON REDIRECTABLE,NEEDS FREQUENTLY REDIRECTIONS ,ENCOURAGED TO VERBALIZED ANY FEELING OR CONCERN ,SAFETY PRECAUTIONS MAINTAINED. WILL CONTINUE TO MONITOR Q15MIN ROUNDS FOR SAFETY.
[2022-11-07 20:00] VITALS: BP 123/63
[2022-11-07] MEDS: SIMVASTATIN 20 MG TABLET PO SCH (21:10)
--- NOTE | 2022-11-07 22:30 | NUR ---
RN-NOTES TECHNOLOGY OFFICER ANANDA COOK NOTIFIED REGARDING PATIENT'S URINALYSIS RESULTS, WITH NEW ORDES RECEIVED ,BACTRIM DS TABLET 800/160 MG PO Q 12 HR ,NEW ORDES NOTED AND CARRIED OUT.
--- NOTE | 2022-11-08 06:46 | NUR ---
RN NOTES: PT. REFUSED AM LABS DRAW , ENCOURAGED X 3 PT. STRONGLY REFUSED.
[2022-11-08] MEDS: LEVOTHYROXINE SODIUM 25 MCG TABLET PO SCH (07:30)
[2022-11-08] MEDS: PANTOPRAZOLE 40 MG TABLET.DR PO SCH (07:30)
[2022-11-08 08:00] VITALS: BP 140/85
[2022-11-08] MEDS: SULFAMETH/TRIMETH 800/160 MG 1 UDTAB TABLET PO SCH ×2 (08:41→21:00)
[2022-11-08] MEDS: LISINOPRIL (5MG) 5 MG TABLET PO SCH (08:42)
[2022-11-08] MEDS: DIVALPROEX SODIUM 250 MG TABLET.DR PO SCH ×3 (08:42→17:00)
[2022-11-08] MEDS: risperiDONE 1 MG TABLET PO SCH ×3 (08:42→17:00)
[2022-11-08] MEDS: DOCUSATE SODIUM 100 MG CAPSULE PO SCH (08:42)
--- NOTE | 2022-11-08 08:42 | NUR ---
RN-NOTES PATIENT STILL REFUSED ALL 0900AMMEDICATIONS INCLUDING DEPAKOTE 250MG P.O AND RISPERDAL 2MG P.O. EXPLAINED RISK AND BENEFITS BUT PATIENT GETS ARGUMENTATIVE ,ANGRY AND IRRITABLE. OFFERED X3. DR. MACKENZIE IN THE UNIT AND MADE AWARE.
[2022-11-08] MEDS ORDERED: HALOPERIDOL LACTATE INJ 5 MG/ML VIAL IM ONE (09:00)
[2022-11-08] MEDS ORDERED: diphenhydrAMINE HCL 50 MG/ML VIAL IM ONE (09:00)
--- NOTE | 2022-11-08 09:27 | NUR ---
RN-NOTES AUTO GARAGE MECHANIC ACCOMPANIED THE PSYCHIATRIST TO THE PATIENT'S ROOM TO INTERVIEW THE PATIENT. DURING THE INTERVIEW PATIENT GOT ANGRY, AGITATED , SCREAMING AND YELLING AT THE PSYCHIATRIST. ORDERED HALDOL 5MG IM AND BENADRYL 25MG IM ONCE. MEDS GIVEN AT THE RIGHT BUTTOCK WITH TWO STAFF ASSIST. PATIENT TOLERATED WELL.WILL CONT.MONITORING FOR SAFETY AND BEHAVIOR.
[2022-11-08 10:19] LABS: ALBUMIN 2.9 g/dL (3.4-5.0); BILIRUBIN,TOTAL 0.6 mg/dL (0.2-1.0); TOTAL PROTEIN, SERUM 6.3 g/dL (6.4-8.2)
[2022-11-08 10:28] LABS: CALCIUM, SERUM 8.3 mg/dL (8.5-10.1); CREATININE 0.9 mg/dL (0.6-1.3)
[2022-11-08] MEDS: POTASSIUM CHLORIDE 20 MEQ TAB.PRT.SR PO SCH ×3 (15:50→18:21)
[2022-11-08] MEDS ORDERED: POTASSIUM CHLORIDE 20 MEQ TAB.PRT.SR PO ONE (16:00)
--- NOTE | 2022-11-08 16:59 | NUR ---
Pio Lomas scheduled for Friday ( @ 9:30AM. Dr. Mitchell made aware.
--- NOTE | 2022-11-08 18:08 | NUR ---
RN-NOTES PATIENT STAYS IN BED MOST OF THE TIME ,INTERMITTENTLY SLEEPING WITH BREATHING EVEN AND NONLABORED EASILY AROUSED. SELECTIVE WITH MEDICATIONS TOOK ONLY POTASSIUM THIS SHIFT. DR. MACKENZIE AWARE, RIESE WAS FILED. PATIENT IS GUARDED EASILY ANGRY,ARGUMENTATIVE BEHAVIOR.PATIENT AMBULATORY TO THE BATHROOM WITH STEADY GAIT. ALL NEEDS ATTENDED AND ANTICIPATED. WILL CONT. MONITORING FOR SAFETY AND BEHAVIOR. WILL ENDORSE TO INCOMING NURSE FOR THE CONTINUITY OF CARE
--- NOTE | 2022-11-08 20:32 | NUR ---
RN NOTES :RECEIVED PATIENT RESTING IN ROOM, A/OX2. NO S/SX OF ACUTE DISTRESS NOTED. PATIENT IS ,CONFUSED, DELUSIONAL ANXIOUS, EASILY AGITATED , UNCOOPERTIVE, PARANOID , GUARDED, LOUD TALKING TO SELF, PER DAY SHIFT REPORT NON COMPLIANT WITH MEDS NON REDIRECTABLE,NEEDS FREQUENTLY REDIRECTIONS ,ENCOURAGED TO VERBALIZED ANY FEELING OR CONCERN ,SAFETY PRECAUTIONS MAINTAINED. WILL CONTINUE TO MONITOR Q15MIN ROUNDS FOR SAFETY.
[2022-11-08] MEDS: SIMVASTATIN 20 MG TABLET PO SCH (21:09)
--- NOTE | 2022-11-08 21:10 | NUR ---
RN NOTES: PT. REFUSED NIGHT SCHEDULE MEDS , PO BACTRIM DS AND PO ZOCOR 20MG , ENCOURAGED X 3 PT. STRONGLY REFUSED. PT. BEHAVIOR VERY UNCOOPERTIVE AT THIS TIME.
[2022-11-08 22:00] VITALS: BP 125/72
[2022-11-09] MEDS: PANTOPRAZOLE 40 MG TABLET.DR PO SCH (07:30)
[2022-11-09] MEDS: LEVOTHYROXINE SODIUM 25 MCG TABLET PO SCH (07:30)
[2022-11-09 08:00] VITALS: BP 155/85
[2022-11-09] MEDS: DIVALPROEX SODIUM 250 MG TABLET.DR PO SCH ×3 (09:00→17:00)
[2022-11-09] MEDS: DOCUSATE SODIUM 100 MG CAPSULE PO SCH (09:00)
[2022-11-09] MEDS: LISINOPRIL (5MG) 5 MG TABLET PO SCH (09:00)
[2022-11-09] MEDS: risperiDONE 1 MG TABLET PO SCH ×3 (09:00→17:00)
[2022-11-09] MEDS: SULFAMETH/TRIMETH 800/160 MG 1 UDTAB TABLET PO SCH ×2 (09:00→21:00)
--- NOTE | 2022-11-09 09:02 | NUR ---
RN-NOTES PATIENT REQUESTING HER PROTONIX AND SYNTHROID MEDICATION EARLIER.ANIMAL CARE GIVER DID OFFERED THE SAID MEDICATIONS BUT PATIENT STATED" I WILL NOT TAKE THOSE MEDICATIONS BECAUSE YOUR KILLING THE PRINCES". REFUSED ALL 0900AM MEDICATIONS TOO.REASSURED PATIENT AND EXPLAINED RISK AND BENEFITS BUT PATIENT GETS ARGUMENTATIVE ,ANGRY AND IRRITABLE. OFFERED X3.
[2022-11-09 16:00] VITALS: BP 137/81
--- NOTE | 2022-11-09 17:24 | NUR ---
RN-NOTES PATIENT STAYS IN BED MOST OF THE TIME ,INTERMITTENTLY SLEEPING .NO ACUTE DISTRESS NOTED.PATIENT REFUSED GROUP ACTIVITIES. REFUSED ALL MEDICATIONS THIS SHIFT. PATIENT IS GUARDED EASILY ANGRY,ARGUMENTATIVE,DELUSIONAL BEHAVIOR. STATED"I'M PRINCES ,THE MOST BEAUTIFUL PRINCES AND I WANT TO GO HOME BECAUSE MY NESSA IS LOOKING FOR ME".PATIENT AMBULATORY TO THE BATHROOM WITH STEADY GAIT.REFUSED TO SHOWER THIS SHIFT. ALL NEEDS ATTENDED AND ANTICIPATED. WILL CONT. MONITORING FOR SAFETY AND BEHAVIOR. WILL ENDORSE TO INCOMING NURSE FOR THE CONTINUITY OF CARE
--- NOTE | 2022-11-09 19:35 | NUR ---
thoracic surgeon notes: Received patient in bed, awake. quiet. calm. a/o x1. patient has flights of ideas. suspicious. guarded. no c/o pain at this time. on room air. breathing even and unlabored. no acute distress noted. will continue to monitor for safety and behavior.
[2022-11-09 20:00] VITALS: BP 139/75
[2022-11-09] MEDS: SIMVASTATIN 20 MG TABLET PO SCH (21:30)
--- NOTE | 2022-11-09 22:38 | NUR ---
radio program checker notes: Patient refused 2100 Bactrim po as ordered. She agreed to take the medication if crushed, but when offered crushed medication, patient refused, stated "she's allergic to the medication". offered x3, with snack and explaining the benefits, patient still refused.
--- NOTE | 2022-11-10 05:42 | NUR ---
LEAD CARGO MOVER NOTES: PATIENT AWAKE. CALM AT THIS TIME. NO ACUTE DISTRESS NOTED. EASILY AGITATED. DELUSIONAL. SELECTIVE WITH MEDICATION. NO C/O PAIN AT THIS TIME. AMBULATORY WITH STEADY GAIT. ALL NEEDS ANTICIPATED AND ATTENDED. WILL CONTINUE TO MONITOR FOR SAFETY AND BEHAVIOR. WILL ENDORSE TO ONCOMING NURSE FOR CONTINUITY OF CARE.
[2022-11-10] MEDS: LEVOTHYROXINE SODIUM 25 MCG TABLET PO SCH (07:30)
[2022-11-10] MEDS: PANTOPRAZOLE 40 MG TABLET.DR PO SCH (07:30)
[2022-11-10 08:00] VITALS: BP 118/73
[2022-11-10] MEDS: DOCUSATE SODIUM 100 MG CAPSULE PO SCH (08:38)
[2022-11-10] MEDS: LISINOPRIL (5MG) 5 MG TABLET PO SCH (08:38)
[2022-11-10] MEDS: DIVALPROEX SODIUM 250 MG TABLET.DR PO SCH ×3 (08:38→17:00)
[2022-11-10] MEDS: SULFAMETH/TRIMETH 800/160 MG 1 UDTAB TABLET PO SCH ×2 (08:38→21:00)
[2022-11-10] MEDS: risperiDONE 1 MG TABLET PO SCH ×3 (08:39→17:00)
[2022-11-10 16:00] VITALS: BP 129/76
--- NOTE | 2022-11-10 18:27 | NUR ---
GPS/RN PT REFUSED MEDS THROUGH THE DAY OFFERED ON NUMEROUS OCCASIONS.
[2022-11-10] MEDS: SIMVASTATIN 20 MG TABLET PO SCH (21:03)
--- NOTE | 2022-11-10 21:30 | NUR ---
RN NOTE PATIENT REFUSED SCHEDULED MEDS FOR TONIGHT BACTRIM AND ZOCOR. DESPITE OF EXPLANATION PROVIDED REGARDING MEDICATION COMPLIANCE. PATIENT CONTINUED TO REFUSE X3.
[2022-11-11] MEDS: PANTOPRAZOLE 40 MG TABLET.DR PO SCH (07:24)
[2022-11-11] MEDS: LEVOTHYROXINE SODIUM 25 MCG TABLET PO SCH (07:24)
[2022-11-11] MEDS: DIVALPROEX SODIUM 250 MG TABLET.DR PO SCH ×4 (08:49→17:42)
[2022-11-11] MEDS: risperiDONE 1 MG TABLET PO SCH ×4 (08:51→17:42)
[2022-11-11] MEDS: DOCUSATE SODIUM 100 MG CAPSULE PO SCH ×2 (08:51→09:00)
[2022-11-11] MEDS: SULFAMETH/TRIMETH 800/160 MG 1 UDTAB TABLET PO SCH ×3 (08:51→21:39)
[2022-11-11] MEDS: LISINOPRIL (5MG) 5 MG TABLET PO SCH (08:51)
--- NOTE | 2022-11-11 08:52 | NUR ---
pt refused bp and bp medication even after risk and benefit. will continue to monitor.
[2022-11-11] MEDS: HALOPERIDOL LACTATE INJ 5 MG/ML VIAL IM PRN (10:48)
[2022-11-11] MEDS: diphenhydrAMINE HCL 50 MG/ML VIAL IM PRN (10:48)
--- NOTE | 2022-11-11 10:55 | NUR ---
pt riesed. pt offered medication again but refused even after risk and benefits explained. pt was given im inj of haldol 5mg, and benadryl 25mg per doctor orders.
[2022-11-11 16:00] VITALS: BP 148/77
[2022-11-11 20:17] VITALS: BP 145/70
[2022-11-11] MEDS: SIMVASTATIN 20 MG TABLET PO SCH (21:39)
--- NOTE | 2022-11-11 21:43 | NUR ---
Pt compliant with PM meds. Refused at first stating, " i am leah Lisa and i dont take meds." Explained to pt risk and benefits and the meds she is taking is an antibiotic medication and for cholesterol and its important to fight your infection. After explaining to pt, pt states, "ok sir, i will take it because you are very nice.". Will continue to monitor. Frequent visual check done for safety q 15 mins. Will endorse to next shift.
[2022-11-12] MEDS: PANTOPRAZOLE 40 MG TABLET.DR PO SCH (07:35)
[2022-11-12] MEDS: LEVOTHYROXINE SODIUM 25 MCG TABLET PO SCH (07:35)
[2022-11-12 08:00] VITALS: BP 128/70
[2022-11-12] MEDS: DOCUSATE SODIUM 100 MG CAPSULE PO SCH ×2 (08:29→08:47)
[2022-11-12] MEDS: DIVALPROEX SODIUM 250 MG TABLET.DR PO SCH ×4 (08:29→17:00)
[2022-11-12] MEDS: SULFAMETH/TRIMETH 800/160 MG 1 UDTAB TABLET PO SCH ×3 (08:29→21:00)
[2022-11-12] MEDS: LISINOPRIL (5MG) 5 MG TABLET PO SCH ×2 (08:30→08:47)
[2022-11-12] MEDS: risperiDONE 1 MG TABLET PO SCH ×4 (08:30→17:00)
[2022-11-12] MEDS: diphenhydrAMINE HCL 50 MG/ML VIAL IM PRN ×2 (08:48→17:51)
[2022-11-12] MEDS: HALOPERIDOL LACTATE INJ 5 MG/ML VIAL IM PRN ×2 (08:48→17:50)
[2022-11-12] MEDS: SIMVASTATIN 20 MG TABLET PO SCH (21:54)
--- NOTE | 2022-11-13 06:23 | NUR ---
END OF SHIFT REPORT Patient hours of sleep 7. Refused abx Bactrim, declined education. Active Riesed status, PRN Haldol IM if refuse psyche medication. Denies SI/HI with no plan during the night. Ambulate independently. Q 1h head checked, no sharp object around. Plan for continue inpatient [facility] hospitalization. Will endorse to oncoming RN.
[2022-11-13] MEDS: LEVOTHYROXINE SODIUM 25 MCG TABLET PO SCH ×2 (07:30→08:17)
[2022-11-13] MEDS: PANTOPRAZOLE 40 MG TABLET.DR PO SCH ×2 (07:30→08:18)
[2022-11-13 08:00] VITALS: BP 137/70
[2022-11-13] MEDS: DIVALPROEX SODIUM 250 MG TABLET.DR PO SCH ×4 (08:17→17:00)
[2022-11-13] MEDS: LISINOPRIL (5MG) 5 MG TABLET PO SCH ×2 (08:18→09:00)
[2022-11-13] MEDS: DOCUSATE SODIUM 100 MG CAPSULE PO SCH ×2 (08:18→09:00)
[2022-11-13] MEDS: SULFAMETH/TRIMETH 800/160 MG 1 UDTAB TABLET PO SCH ×3 (08:18→21:00)
[2022-11-13] MEDS: risperiDONE 1 MG TABLET PO SCH ×4 (08:18→17:00)
[2022-11-13] MEDS: diphenhydrAMINE HCL 50 MG/ML VIAL IM PRN ×3 (09:30→18:00)
[2022-11-13] MEDS: HALOPERIDOL LACTATE INJ 5 MG/ML VIAL IM PRN ×3 (09:30→18:00)
--- NOTE | 2022-11-13 19:01 | NUR ---
NURSE NOTE: PT REFUSED PO MEDS ALL SHIFT. RECEIVED IM SHOT ORDERED PER REISE. WILL CONT TO MONITOR.
[2022-11-13 20:00] VITALS: BP 101/71
--- NOTE | 2022-11-13 21:00 | NUR ---
RN NOTES-PATIENT REFUSED BACTRIM. PATIENT REPORTED THAT SHE IS ALLERGIC TO THE MEDICATION. WILL NOTIFY THE DOCTOR AND WILL CARRY OUT ACTIVE MD ORDERS.
[2022-11-13] MEDS: SIMVASTATIN 20 MG TABLET PO SCH (21:25)
--- NOTE | 2022-11-14 00:07 | NUR ---
RN NOTES- ORDERED CIPROFLOXACIN 500 BID MD ORDERED KEFLEX 500 BID BUT PATIENT IS ALLERGIC TO AMOXICILLIN. DR. ROSA CHANGED THE ORDER TO CIPROFLOXACIN 500MG BID INSTEAD. WILL ENDORSE TO THE NEXT SHIFT.
[2022-11-14] MEDS: PANTOPRAZOLE 40 MG TABLET.DR PO SCH (07:30)
[2022-11-14] MEDS: DIVALPROEX SODIUM 250 MG TABLET.DR PO SCH ×3 (08:11→17:09)
[2022-11-14] MEDS: risperiDONE 1 MG TABLET PO SCH ×3 (08:11→17:09)
[2022-11-14] MEDS: LEVOTHYROXINE SODIUM 25 MCG TABLET PO SCH (08:11)
[2022-11-14] MEDS: CIPROFLOXACIN HCL 500 MG TABLET PO SCH ×2 (08:22→21:00)
[2022-11-14] MEDS: DOCUSATE SODIUM 100 MG CAPSULE PO SCH (08:22)
[2022-11-14] MEDS: LISINOPRIL (5MG) 5 MG TABLET PO SCH (08:22)
--- NOTE | 2022-11-14 19:49 | NUR ---
RN NOTES: RECEIVED PATIENT RESTING IN BED . A/OX2. NO S/SX OF ACUTE DISTRESS NOTED. PATIENT IS GUARDED, DELUSIONAL , PARANOID EASILY GETS ANGRY AND ARGUMENTATIVE. ALL NEEDS ATTENDED AND ANTICIPATED. SAFETY PRECAUTIONS MAINTAINED. WILL CONTINUE TO MONITOR Q15MIN ROUNDS FOR SAFETY.
[2022-11-14] MEDS: SIMVASTATIN 20 MG TABLET PO SCH (21:06)
--- NOTE | 2022-11-14 21:11 | NUR ---
RN NOTES: REFUSED CIPROFLOXACIN PT. REFUSED NIGHT SCHEDULE MEDS , PO CIPROFLOXACIN 500m , ENCOURAGED X 3 PT. STRONGLY REFUSED. PER PT.STATES I AM ALLERGIC TO CIPRO ,PT. BEHAVIOR VERY UNCOOPERTIVE AT THIS TIME. PT.AGGRY TO TAKE PO SIMAVASTIN 20 MG.
[2022-11-15] MEDS: LEVOTHYROXINE SODIUM 25 MCG TABLET PO SCH ×2 (07:30→08:05)
[2022-11-15] MEDS: PANTOPRAZOLE 40 MG TABLET.DR PO SCH ×2 (07:30→08:05)
[2022-11-15 08:00] VITALS: BP 139/69
[2022-11-15] MEDS: DOCUSATE SODIUM 100 MG CAPSULE PO SCH (08:24)
[2022-11-15] MEDS: CIPROFLOXACIN HCL 500 MG TABLET PO SCH ×2 (08:24→20:11)
[2022-11-15] MEDS: DIVALPROEX SODIUM 250 MG TABLET.DR PO SCH ×3 (08:24→17:00)
[2022-11-15] MEDS: risperiDONE 1 MG TABLET PO SCH ×3 (08:25→17:00)
[2022-11-15] MEDS: LISINOPRIL (5MG) 5 MG TABLET PO SCH (08:25)
[2022-11-15] MEDS: diphenhydrAMINE HCL 50 MG/ML VIAL IM PRN ×3 (09:59→17:00)
[2022-11-15] MEDS: HALOPERIDOL LACTATE INJ 5 MG/ML VIAL IM PRN ×3 (09:59→16:59)
[2022-11-15 16:00] VITALS: BP 157/85
--- NOTE | 2022-11-15 17:22 | NUR ---
NURSE NOTES: PT REFUSED ALL MEDS DURING SHIFTS. RECEIVED SHOT ORDERED. PT STATED SHE DID NOT WANT THE PO MEDS BECAUSE THEY ARE POISON AND MAKE HER THROW UP, BUT WOULD TAKE THE SHOT THIS PM. WILL ENDORSE TO NEXT SHIFT.
--- NOTE | 2022-11-15 20:59 | NUR ---
REFUSED VS AT 2000
[2022-11-15] MEDS: SIMVASTATIN 20 MG TABLET PO SCH (21:00)
--- NOTE | 2022-11-16 06:07 | NUR ---
WITH EPISODE OF DELUSION, CALM, STAYED IN ROOM, SLEPT THROUGH THE NIGHT, NON COMPLIANT WITH CIPRO AND SIMVASTATIN, EDUCATED PATIENT ON RISKS AND BENEFITS, STILL REFUSED MEDS.
--- NOTE | 2022-11-16 07:00 | NUR ---
Received patient awake, confused, verbalizes "when will I go home? I told you people I have difficulty of hearing". Reoriented patient to place, date and time, and advise that the doctor will make rounds later and update
[2022-11-16] MEDS: LEVOTHYROXINE SODIUM 25 MCG TABLET PO SCH (07:46)
[2022-11-16] MEDS: PANTOPRAZOLE 40 MG TABLET.DR PO SCH (07:46)
[2022-11-16 08:00] VITALS: BP 138/71
[2022-11-16] MEDS: risperiDONE 1 MG TABLET PO SCH ×4 (09:39→17:00)
[2022-11-16] MEDS: DIVALPROEX SODIUM 250 MG TABLET.DR PO SCH ×4 (09:39→17:00)
[2022-11-16] MEDS: CIPROFLOXACIN HCL 500 MG TABLET PO SCH ×2 (09:39→21:00)
[2022-11-16] MEDS: DOCUSATE SODIUM 100 MG CAPSULE PO SCH (09:39)
[2022-11-16] MEDS: LISINOPRIL (5MG) 5 MG TABLET PO SCH (09:39)
[2022-11-16] MEDS ORDERED: PALIPERIDONE PALMITATE 234 MG/1.5 ML SYRINGE IM ONE (13:00)
--- NOTE | 2022-11-16 13:45 | NUR ---
Patient refused Depakote Dr, 250 mg, PO, tid & Risperdal 2 mg, two tab, PO, tid. Patient is riesed, hence Invega Sustenna, 234 mg, 1.5 ml, IM, once, was given as ordered by MD Daley. Haldol & Benadryl not given at this time as ordered by MD Daley as well. Charge nurse aware
[2022-11-16 16:00] VITALS: BP_SYST 127; BP_SYST 93; BP_DIAS 61; BP_DIAS 76
--- NOTE | 2022-11-16 17:56 | NUR ---
Patient refused pm medications as prescribed. Dr Daley aware who ordered to hold off other medications at this time
--- NOTE | 2022-11-16 18:31 | NUR ---
Patient asleep but arousable, non-compliant with some of her medications during shift, safety protocol in placed, will be endorsed to pm shift nurse for hill
[2022-11-16 21:06] VITALS: BP 139/56
[2022-11-16] MEDS: SIMVASTATIN 20 MG TABLET PO SCH ×2 (21:22→21:24)
--- NOTE | 2022-11-16 21:25 | NUR ---
RN NOTE PATIENT REFUSED HER CIPRO BECAUSE IT "CAUSES PROBLEMS" WITH HER HEART. PATIENT EDUCATION GIVEN. PATIENT STILL DECLINED MED. PATIENT INITIALLY AGREED TO TAKING HER SCHEDULED ZOCOR, BUT THEN REFUSED RIGHT AFTER AGREEING TO TAKE IT. PATIENT ENCOURAGED AND WAS GIVEN EDUCATION ON MED. PATIENT BECAME AGITATED AND WAS ADAMANT ABOUT NOT TAKING ANY MEDS. PATIENT O/W STABLE; WILL CONTINUE TO MONITOR PATIENT.
--- NOTE | 2022-11-17 07:15 | NUR ---
QUINTON NOTES -RECEIVED PT IN HIS ROOM, ALERT, ORIENTED, VERBALLY RESPONSIVE, CALM, APPEARS WITHDRAWN AND CONFUSED. PT IS ASKING FOR HIS BIPOLAR MEDICATION AND WHEN HE CAN TAKE A SHOWER. NOT IN ANY ACUTE DISTRESS. WILL CONTINUE TO MONITOR. Addendum: 11/17/22 at 0928 by JP PFEIFFER RN WRONG PATIENT
[2022-11-17] MEDS: LEVOTHYROXINE SODIUM 25 MCG TABLET PO SCH ×2 (07:30→08:11)
[2022-11-17] MEDS: PANTOPRAZOLE 40 MG TABLET.DR PO SCH ×2 (07:30→08:11)
[2022-11-17 08:00] VITALS: BP 137/71
[2022-11-17] MEDS: risperiDONE 1 MG TABLET PO SCH ×4 (08:14→16:56)
[2022-11-17] MEDS: CIPROFLOXACIN HCL 500 MG TABLET PO SCH ×2 (08:15→21:00)
[2022-11-17] MEDS: DIVALPROEX SODIUM 250 MG TABLET.DR PO SCH ×4 (08:15→16:56)
[2022-11-17] MEDS: LISINOPRIL (5MG) 5 MG TABLET PO SCH ×2 (08:15→09:00)
[2022-11-17] MEDS: DOCUSATE SODIUM 100 MG CAPSULE PO SCH ×2 (08:42→09:00)
[2022-11-17] MEDS: HALOPERIDOL LACTATE INJ 5 MG/ML VIAL IM PRN (09:04)
[2022-11-17] MEDS: diphenhydrAMINE HCL 50 MG/ML VIAL IM PRN (09:05)
--- NOTE | 2022-11-17 09:18 | NUR ---
RN NOTES - PATIENT REFUSED ALL MORNING MEDS INCLUDING RISPERDAL AND CIPROFLOXACIN DESPITE ENCOURAGEMENT. PATIENT IS VERY COMBATIVE, USING PROFANITIES, AND SPITTING AT THE PIPEFITTER WELDER. GIVEN HALDOL 50 MG AND BENADRYL 25 MG IM ON LEFT ARM. PATIENT WAS COOPERATIVE
--- NOTE | 2022-11-17 09:19 | NUR ---
PT IS REISED.
--- NOTE | 2022-11-17 12:20 | NUR ---
RN NOTES - PT WAS SEEN BY DR DAVID, PT IS UNCOOPERATIVE, WONT SIGN RECOMMENDED MEDICATION DEPAKOTE. WILL TRY AGAIN LATER.
[2022-11-17] MEDS ORDERED: DIVALPROEX SODIUM 250 MG TABLET.DR PO SCH (13:00)
--- NOTE | 2022-11-17 17:52 | NUR ---
RN NOTES - PATIENT WAS COMPLIANT ON 1300 AND 1700 PO MEDICATIONS, NO IM MEDS REQUIRED.
--- NOTE | 2022-11-17 18:52 | NUR ---
RN CLOSING NOTES PATIENT IS SLEEPING IN BED, EASILY AROUSABLE, CALM, QUIET, NOT COMBATIVE, NOT SHOWING ANY SIGNS/SYMPTOMS OF ACUTE DISTRESS. ALL DUE MEDS GIVEN, ALL NEEDS MET AND KEPT PT SAFE. WILL ENDORSE TO CHILD CARE CENTER ADMINISTRATOR NURSE.
[2022-11-17] MEDS: SIMVASTATIN 20 MG TABLET PO SCH (21:14)
--- NOTE | 2022-11-17 21:15 | NUR ---
RN NOTE PATIENT REFUSED SCHEDULED MEDS CIPROFLOXACIN AND ZOCOR AT 2100. EDUCATION PROVIDED REGARDING MEDICATION COMPLIANCE BUT PATIENT CONTINUED TO REFUSE. PATIENT STATED "NO, I DON'T WANT IT, IT MAKES ME SICK". WILL CONTINUE TO MONITOR.
[2022-11-18 08:00] VITALS: BP 160/80
[2022-11-18] MEDS: PANTOPRAZOLE 40 MG TABLET.DR PO SCH (09:07)
[2022-11-18] MEDS: LEVOTHYROXINE SODIUM 25 MCG TABLET PO SCH (09:07)
[2022-11-18] MEDS: DOCUSATE SODIUM 100 MG CAPSULE PO SCH (09:07)
[2022-11-18] MEDS: DIVALPROEX SODIUM 250 MG TABLET.DR PO SCH ×3 (09:07→16:46)
[2022-11-18] MEDS: CIPROFLOXACIN HCL 500 MG TABLET PO SCH ×2 (09:08→21:00)
[2022-11-18] MEDS: risperiDONE 1 MG TABLET PO SCH ×3 (09:08→16:46)
[2022-11-18] MEDS: LISINOPRIL (5MG) 5 MG TABLET PO SCH (09:08)
[2022-11-18 16:00] VITALS: BP 139/53
[2022-11-18 20:20] VITALS: BP 155/82
--- NOTE | 2022-11-18 21:01 | NUR ---
elvira rn note patient refused Cipro per patient and to quote "I told you already that I wouldn't take cipro because I read in the Physician's deask that Cipro prolongs QRT interval of the heart and it will help with my infection" "Ma'am that's all I have to say" Tried patient education and telling patient about the risk and benefits of medication but patient was passive with patient education and repeatedly said "That's all I have to say". Unopened tab of cipro returned in [employer] Addendum: 11/18/22 at 2109 by ELIZABETH GARCIA RN elvira rn note patient refused Cipro per patient and to quote "I told you already that I wouldn't take cipro because I read in the Physician's deask that Cipro prolongs QRT interval of the heart and it will *NOT help with my infection" "Ma'am that's all I have to say" Tried patient education and telling patient about the risk and benefits of medication but patient was passive with patient education and repeatedly said "That's all I have to say". Unopened tab of cipro returned in [employer]
[2022-11-18] MEDS: SIMVASTATIN 20 MG TABLET PO SCH (22:00)
--- NOTE | 2022-11-19 06:51 | NUR ---
noc rn closing note patient in bed with eyes closed, no s/s of apparent distress in room air. Patient denied SI/HI throughout shift. safety ensured. will endorse to morning shift rn for continuity of care.
[2022-11-19] MEDS: PANTOPRAZOLE 40 MG TABLET.DR PO SCH ×2 (07:30→08:22)
[2022-11-19 08:00] VITALS: BP 150/87
[2022-11-19] MEDS: risperiDONE 1 MG TABLET PO SCH ×4 (08:15→17:00)
[2022-11-19] MEDS: DIVALPROEX SODIUM 250 MG TABLET.DR PO SCH ×4 (08:15→17:00)
[2022-11-19] MEDS: CIPROFLOXACIN HCL 500 MG TABLET PO SCH ×2 (08:15→08:22)
[2022-11-19] MEDS: LEVOTHYROXINE SODIUM 25 MCG TABLET PO SCH (08:15)
[2022-11-19] MEDS: DOCUSATE SODIUM 100 MG CAPSULE PO SCH (08:16)
[2022-11-19] MEDS: LISINOPRIL (5MG) 5 MG TABLET PO SCH (08:16)
[2022-11-19] MEDS: HALOPERIDOL LACTATE INJ 5 MG/ML VIAL IM PRN ×2 (13:02→17:25)
[2022-11-19] MEDS: diphenhydrAMINE HCL 50 MG/ML VIAL IM PRN ×2 (13:02→17:26)
--- NOTE | 2022-11-19 13:03 | NUR ---
RN- NOTES PATIENT REFUSED 1300 RISPERDAL. HALDOL 5MG IM AND BENADRYL 25MG IM ADMINISTERED PER REISE ORDER.
[2022-11-19 16:02] VITALS: BP 160/99
--- NOTE | 2022-11-19 17:25 | NUR ---
RN- NOTES PATIENT REFUSED 1700 RISPERDAL. HALDOL 5MG IM AND BENADRYL 25MG IM ADMINISTERED PER REISE ORDER.
--- NOTE | 2022-11-19 18:50 | NUR ---
RN- CLOSING NOTES PATIENT AWAKE, RESTING IN BED, BREATHING EVEN AND NON LABORED WITH NO S/S OF DISTRESS. PATIENT IS UNCOOPERATIVE, HYPERVERBAL, DISORIENTED, DELUSIONAL, GUARDED, GRANDIOSE, ANXIOUS, AGGRESSIVE, EASILY AGITATED, AND ISOLATIVE. PATIENT IS NOT MEDICATION COMPLIANT, EDUCATION/ENCOURAGEMENT X3 PROVIDED, PATIENT CONTINUES TO REFUSE MEDICATIONS. HALDOL/BENADRYL IM ADMINISTERED PER REISE ORDERS. DENIES SI/HI AT THIS TIME. WILL CONTINUE TO MONITOR Q 15 MINUTES FOR SAFETY AND BEHAVIOR.
[2022-11-19] MEDS: SIMVASTATIN 20 MG TABLET PO SCH (21:04)
[2022-11-19] MEDS: LORAZEPAM 0.5 MG TABLET PO PRN (22:00)
[2022-11-20] MEDS: LEVOTHYROXINE SODIUM 25 MCG TABLET PO SCH (07:19)
[2022-11-20] MEDS: PANTOPRAZOLE 40 MG TABLET.DR PO SCH (07:19)
[2022-11-20 08:00] VITALS: BP 148/70
[2022-11-20] MEDS: DOCUSATE SODIUM 100 MG CAPSULE PO SCH (08:26)
[2022-11-20] MEDS: LISINOPRIL (5MG) 5 MG TABLET PO SCH (08:26)
[2022-11-20] MEDS: risperiDONE 1 MG TABLET PO SCH ×3 (08:32→16:01)
[2022-11-20] MEDS: DIVALPROEX SODIUM 250 MG TABLET.DR PO SCH ×3 (08:32→16:01)
[2022-11-20] MEDS: HALOPERIDOL LACTATE INJ 5 MG/ML VIAL IM PRN ×2 (08:38→13:20)
[2022-11-20] MEDS: diphenhydrAMINE HCL 50 MG/ML VIAL IM PRN ×2 (08:38→13:20)
--- NOTE | 2022-11-20 08:45 | NUR ---
RN- NOTES PATIENT REFUSED HER AM RISPERDAL AND DEPAKOTE DESPITE ENCOURAGEMENT, EXPLAINING RISKS AND BENEFITS. HALDOL 5MG IM AND BENADRYL 25MG IM ADMINISTERED PER REISED ORDER.
--- NOTE | 2022-11-20 13:25 | NUR ---
RN NOTES PATIENT AGAIN REFUSED HER RISPERDAL AND DEPAKOTE PO SCHEDULED FOR 1300 DESPITE ENCOURAGEMENT, EXPLAINING RISKS AND BENEFITS. HALDOL 5MG IM AND BENADRYL 25MG IM ADMINISTERED PER REISED ORDER.
[2022-11-20 16:16] VITALS: BP 103/55
--- NOTE | 2022-11-20 19:00 | NUR ---
RN opening notes Received Pt in the bed laying comfortably. Pt is alert and orientedx1-2, episode of confusion, delusional, guarded and disorganized. On room air. No SOB. No S/S of distress noted. VS is stable. Snacks is offered. Pt denies SI/Hi at this time. Ambulates with a steady gait. safety precautions is maintained. Will continue to monitor Q 15 mins checks for safety and behavior.
[2022-11-20 20:36] VITALS: BP 127/63
[2022-11-20] MEDS: SIMVASTATIN 20 MG TABLET PO SCH (21:15)
--- NOTE | 2022-11-20 21:16 | NUR ---
Rn notes Pt refuses simvastatin. Explained risks and benefits. Pt stated "No!! Thank you!" Pt keep refusing. Will continue to monitor.
--- NOTE | 2022-11-21 07:45 | NUR ---
RN OPENING NOTE: RECEIVED PT IN BED. AAOX1-2. WITH PERIODS OF CONFUSION, DELUSIONAL, AND GUARDED. ON RA WITH NO RESP DISTRESS NOTED. PT DENIES HI/SI. PT ABLE TO AMBULATE WITH STEADY GAIT. SAFETY PRECAUTION RENDERED. WILL CONTINUE TO MONITOR Q15MIN CHECKS FOR SAFETY AND BEHAVIOR.
[2022-11-21 08:00] VITALS: BP 136/72
[2022-11-21] MEDS: risperiDONE 1 MG TABLET PO SCH ×3 (08:07→16:21)
[2022-11-21] MEDS: PANTOPRAZOLE 40 MG TABLET.DR PO SCH (08:07)
[2022-11-21] MEDS: DOCUSATE SODIUM 100 MG CAPSULE PO SCH (08:07)
[2022-11-21] MEDS: DIVALPROEX SODIUM 250 MG TABLET.DR PO SCH ×3 (08:07→16:21)
[2022-11-21] MEDS: LEVOTHYROXINE SODIUM 25 MCG TABLET PO SCH (08:07)
[2022-11-21] MEDS: LISINOPRIL (5MG) 5 MG TABLET PO SCH (08:07)
[2022-11-21 16:00] VITALS: BP 152/81
--- NOTE | 2022-11-21 17:48 | NUR ---
RN-NOTES PATIENT STAYS IN BED MOST OF THE TIME ,INTERMITTENTLY SLEEPING .NO ACUTE DISTRESS NOTED.PATIENT REFUSED GROUP ACTIVITIES. COMPLIANT WITH MEDICATIONS. PATIENT IS GUARDED EASILY ANGRY,ARGUMENTATIVE,DELUSIONAL BEHAVIOR. STATED"I'M PRINCES ",PATIENT AMBULATORY TO THE BATHROOM WITH STEADY GAIT. ALL NEEDS ATTENDED AND ANTICIPATED. WILL CONT. MONITORING FOR SAFETY AND BEHAVIOR. WILL ENDORSE TO INCOMING NURSE FOR THE CONTINUITY OF CARE
--- NOTE | 2022-11-21 20:01 | NUR ---
RN NOTES: RECEIVED PATIENT RESTING IN BED . A/OX2. NO S/SX OF ACUTE DISTRESS NOTED. PATIENT IS ANXIOUS ,CONFUSED,HYPERVERBAL, GUARDED, DELUSIONAL , PARANOID, EASILY GETS ANGRY AND ARGUMENTATIVE. ALL NEEDS ATTENDED AND ANTICIPATED. SAFETY PRECAUTIONS MAINTAINED. WILL CONTINUE TO MONITOR Q15MIN ROUNDS FOR SAFETY.
[2022-11-21] MEDS: SIMVASTATIN 20 MG TABLET PO SCH (21:50)
[2022-11-22] MEDS: LEVOTHYROXINE SODIUM 25 MCG TABLET PO SCH (07:55)
[2022-11-22] MEDS: PANTOPRAZOLE 40 MG TABLET.DR PO SCH (07:55)
[2022-11-22 08:00] VITALS: BP 151/88
[2022-11-22] MEDS: risperiDONE 1 MG TABLET PO SCH (08:29)
[2022-11-22] MEDS: DOCUSATE SODIUM 100 MG CAPSULE PO SCH (08:29)
[2022-11-22] MEDS: DIVALPROEX SODIUM 250 MG TABLET.DR PO SCH ×3 (08:29→17:00)
[2022-11-22] MEDS: LISINOPRIL (5MG) 5 MG TABLET PO SCH (08:29)
[2022-11-22] MEDS ORDERED: PALIPERIDONE PALMITATE 156 MG/ML SYRINGE IM ONE (11:00)
[2022-11-22 16:00] VITALS: BP 150/86
--- NOTE | 2022-11-22 17:52 | NUR ---
RN-NOTES PATIENT IS VISIBLE IN THE UNIT BUT STAYS IN BED MOST OF THE TIME ,INTERMITTENTLY SLEEPING .NO ACUTE DISTRESS NOTED.PATIENT REFUSED GROUP ACTIVITIES. REFUSED 1700 PM DEPAKOTE. STATED" I GOT MORE HALLUCINATIONS WHEN I TAKE DEPAKOTE SO DON'T GIVE ME DEPAKOTE NO MORE" .OFFERED X3.PATIENT IS GUARDED EASILY ANGRY,ARGUMENTATIVE BEHAVIOR. ALL NEEDS ATTENDED AND ANTICIPATED. WILL CONT. MONITORING FOR SAFETY AND BEHAVIOR. WILL ENDORSE TO INCOMING NURSE FOR THE CONTINUITY OF CARE
--- NOTE | 2022-11-22 19:38 | NUR ---
RN NOTES: PATIENT WALKING AROUND THE UNIT AND ASKING FOR FOOD , AND SNACKS PROVIDED. A/OX2. NO S/SX OF ACUTE DISTRESS NOTED. PATIENT IS ANXIOUS ,CONFUSED,HYPERVERBAL, GUARDED, DELUSIONAL , PARANOID, EASILY GETS ANGRY AND ARGUMENTATIVE. ALL NEEDS ATTENDED AND ANTICIPATED. SAFETY PRECAUTIONS MAINTAINED. WILL CONTINUE TO MONITOR Q15MIN ROUNDS FOR SAFETY.
[2022-11-22 20:00] VITALS: BP 138/76
[2022-11-22] MEDS: SIMVASTATIN 20 MG TABLET PO SCH (21:15)
[2022-11-23] MEDS: PANTOPRAZOLE 40 MG TABLET.DR PO SCH (07:52)
[2022-11-23] MEDS: LEVOTHYROXINE SODIUM 25 MCG TABLET PO SCH (07:52)
[2022-11-23 08:00] VITALS: BP 153/76
[2022-11-23] MEDS: LISINOPRIL (5MG) 5 MG TABLET PO SCH (08:04)
[2022-11-23] MEDS: DOCUSATE SODIUM 100 MG CAPSULE PO SCH (08:04)
[2022-11-23] MEDS: DIVALPROEX SODIUM 250 MG TABLET.DR PO SCH ×3 (08:33→17:00)
--- NOTE | 2022-11-23 08:33 | NUR ---
RN-NOTES PATIENT REFUSED DEPAKOTE 250MG P.O STATED"IT WILL MAKE ME MORE CRAZY,DON'T GIVE ME ANYMORE". EXPLAIN RISK AND BENEFITS STILL REFUSED .OFFERED X3.
[2022-11-23 16:00] VITALS: BP 115/60
[2022-11-23 20:00] VITALS: BP 114/66
[2022-11-23] MEDS: SIMVASTATIN 20 MG TABLET PO SCH (21:24)
[2022-11-23] MEDS: LORAZEPAM 0.5 MG TABLET PO PRN (23:53)
--- NOTE | 2022-11-23 23:57 | NUR ---
RN NOTES: ANXIETY PT.C/O ANXIOUS RESTLESS PARANOID,HYPERVERBAL, NEEDS FREQUENTLY REDIECTIONS, PRN ATIVAN 1 MG MG PO GIVEN PER PT. REQUEST,WILL CONTINUE TO MONITOR.
[2022-11-24] MEDS: PANTOPRAZOLE 40 MG TABLET.DR PO SCH (07:39)
[2022-11-24] MEDS: LEVOTHYROXINE SODIUM 25 MCG TABLET PO SCH (07:39)
[2022-11-24] MEDS: LORAZEPAM 0.5 MG TABLET PO PRN ×2 (07:40→17:56)
[2022-11-24 08:00] VITALS: BP 128/71
[2022-11-24] MEDS: DIVALPROEX SODIUM 250 MG TABLET.DR PO SCH ×4 (09:00→16:55)
[2022-11-24] MEDS: DOCUSATE SODIUM 100 MG CAPSULE PO SCH ×2 (09:00→09:09)
[2022-11-24] MEDS: LISINOPRIL (5MG) 5 MG TABLET PO SCH (09:09)
[2022-11-24 16:00] VITALS: BP 126/69
[2022-11-24 19:46] VITALS: BP 146/78
--- NOTE | 2022-11-24 20:23 | NUR ---
REMOVABLE PROSTHODONTIST NOTES: RECEIVED PATIENT RESTING IN BED .BREATHING EVEN AND NON-LABORED WITH EQUAL RISE AND FAL OF THE CHEST. A/OX2. PATIENT IS DISPLAYING NO S/S OF APPARENT DISTEESS. PATIENT IS ANXIOUS ,CONFUSED,HYPERVERBAL, GUARDED, DELUSIONAL , PARANOID, EASILY GETS ANGRY AND ARGUMENTATIVE. ALL NEEDS ATTENDED AND ANTICIPATED. SAFETY PRECAUTIONS MAINTAINED. WILL CONTINUE TO MONITOR Q15MIN ROUNDS FOR SAFETY.
[2022-11-24] MEDS: SIMVASTATIN 20 MG TABLET PO SCH ×2 (21:13→21:55)
--- NOTE | 2022-11-24 21:56 | NUR ---
PATIENT REFUSED MEDICATION SIMVASTATIN 20MG. PATIENT STATED I'M NOT TAKING MEDIACTION AT NIGHT.EXPLAINED RISK AND BENEFITS X3
[2022-11-25] MEDS: PANTOPRAZOLE 40 MG TABLET.DR PO SCH (06:47)
[2022-11-25] MEDS: LEVOTHYROXINE SODIUM 25 MCG TABLET PO SCH (06:47)
[2022-11-25 08:00] VITALS: BP 145/88
--- NOTE | 2022-11-25 08:12 | NUR ---
SW Discharge Note: Patient will be discharged to care home facility to [facility] [address] [place] [id number]; ([phone]) via Ambulance transportation at 2PM. [employer] spoke with Parul admissions counselor at [facility] ([phone]) who stated patient will be accepted at facility today. Patient is alert and oriented x2 and is not able to plan for self-care at this time but is willing to accept care provided by the facility. Patient denies any suicidal or homicidal ideations. Patient is aware and agreeable with discharge plans. Patients sister Vidhi ([phone]) has been notified. Patient will continue to follow-up with (psychiatrist) Dr. Martinez at [address] [place] [address]; ([phone]) and (superintendent police) Dr. Perez [address] [facility] [address] [address], [place] [address]; ([phone]). Patient presents with euthymic mood and congruent affect.
[2022-11-25 08:22] VITALS: BP 145/88
[2022-11-25] MEDS: LISINOPRIL (5MG) 5 MG TABLET PO SCH (08:22)
[2022-11-25] MEDS: DIVALPROEX SODIUM 250 MG TABLET.DR PO SCH ×2 (08:22→12:59)
[2022-11-25] MEDS: DOCUSATE SODIUM 100 MG CAPSULE PO SCH ×2 (08:22→08:58)
[2022-11-25] MEDS: LORAZEPAM 0.5 MG TABLET PO PRN (08:50)
--- NOTE | 2022-11-25 13:30 | NUR ---
Discharge Note 67 year old female discharged to [facility] in stable condition. compliant with medications, cooperative with treatment plans. Pt denies SI/HI/AVH and instructed to go to the closest ER if developing SI/HI. Behavior improved, psychiatric tx plans met, medical tx plans deferred for continual monitoring. Educated pt about after care plan and copy provided. Returned personal belongings to pt. Medications reconciled with Dr Mitchell and Dr. Chery Report given to Dorian DE LA VEGA at [facility] for continuity of care. Pt refused to sign discharge paperwork. no wounds at time of discharge Pt left the unit at 1330 via abmulance.
== END 2022-11-25 13:30 | DRG 885 ==
LOC: ER 00:21 → GPS 01:59
PROVIDERS: ADMIT Psychiatry & Neurology Psychiatry; ATTEND Nurse Practitioner Acute Care
DX: F25.0 Schizoaffective disorder, bipolar type (principal); E44.1 Mild protein-calorie malnutrition; N39.0 Urinary tract infection, site not specified; D68.59 Other primary thrombophilia; F02.82 Dementia in other diseases classified elsewhere, unspecified severity, with psychotic disturbance; E03.9 Hypothyroidism, unspecified; E78.5 Hyperlipidemia, unspecified; E87.6 Hypokalemia; E66.9 Obesity, unspecified; Z68.34 Body mass index [BMI] 34.0-34.9, adult; E88.09 Other disorders of plasma-protein metabolism, not elsewhere classified; B96.89 Other specified bacterial agents as the cause of diseases classified elsewhere; G30.9 Alzheimer's disease, unspecified; Z79.899 Other long term (current) drug therapy; Z88.0 Allergy status to penicillin; Z88.6 Allergy status to analgesic agent; Z91.011 Allergy to milk products
CPT/HCPCS: 36415; 80048-TC; 80053-TC; 80061-TC; 80076-TC; 81001; 82962-TC; 85025-TC; 87081-TC; C9803; G0480; J1200; J1630; J2060; J2426